=== PATIENT | female | born 1985 | race Caucasian/White ===

== ENCOUNTER 2017-09-08 14:40 | Emergency (ER) | payer SELFPAY ==
--- NOTE | 2017-09-08 16:00 | RAD REPORT ---
EXAM DESCRIPTION: RAD - Chest Single View - 09/08/2017 3:51 pm CLINICAL HISTORY: Chest pain. COMPARISON: 01/06/2017 FINDINGS: Portable technique limits examination quality. The lungs are grossly clear. The heart is normal in size. No displaced fractures. IMPRESSION: No acute intrathoracic process suspected.
[2017-09-08 16:02] LABS: Absolute Monocytes 0.5 K/uL (0.1-1.3); Absolute Neutrophil 6.8 K/uL (1.8-8.0); Basophils % 0.3 % (0-1.3); Eosinophils % 3.7 % (0-4.4); Hematocrit 40.4 % (36.0-45.0); Lymphocytes % 27.7 % (15.3-44.8); MCV 83.1 fL (80-100); MPV 8.3 fL (7.6-11.3); Monocytes % 4.5 % (3.3-12.3); RBC Red Blood Cell Count 4.86 M/uL (3.86-4.86)
[2017-09-08 16:10] LABS: Protime INR 1.02
[2017-09-08 16:15] LABS: Bicarbonate 27 mEq/L (21-31); Glucose Level 92 mg/dL (65-120); Potassium 3.8 mEq/L (3.6-5.0); Sodium Level 137 mEq/L (135-145)
[2017-09-08 16:21] LABS: ALT/SGPT 11 IU/L (10-60); AST/SGOT 16 IU/L (10-42); Albumin 4.3 g/dL (3.2-5.5); Alkaline Phosphatase 70 IU/L (42-121); BUN Blood Urea Nitrogen 11 mg/dL (6-20); Bilirubin Direct 0.1 mg/dL (0-0.2); Bilirubin Total 0.8 mg/dL (0.3-1.2); Magnesium 1.9 mg/dL (1.8-2.5); Protein, Total 7.5 g/dL (6.0-8.3)
--- NOTE | 2017-09-08 16:28 | EDPHYS ---
Physician Documentation [facility] Name: Terri Bustamante Age: 32 yrs Sex: Female : 1985 Arrival Date: 09/08/2017 Time: 14:44 Bed 18 Private MD: ED Physician Mando Bergeron HPI: 09/08 16:21 This 32 yrs old Female presents to ER via Ambulatory with complaints of Chest jr8 Pain, Chest Pressure. 16:21 The patient or guardian reports chest pain that is located primarily in the substernal jr8 area. The pain radiates to the left arm. Associated signs and symptoms: Pertinent positives: left arm and leg shaking . The chest pain is described as sharp, stabbing. Duration: The patient or guardian reports multiple episodes. Modifying factors: The symptoms are alleviated by nothing. the symptoms are aggravated by movement. Severity of pain: At its worst the pain was moderate in the emergency department the pain has improved. The patient has experienced similar episodes in the past, chronically. The patient has not recently seen a physician. Patient stated that she has had these s/s since she was little sometimes it bothers her more. Cannot afford to get into neurologist or management advisor. 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 - Social history:: Smoking status: Patient uses tobacco products, "4 or 5 a day". ROS: 16:21 Eyes: Negative for injury, pain, redness, and discharge, ENT: Negative for injury, jr8 pain, and discharge, Neck: Negative for injury, pain, and swelling, Respiratory: Negative for shortness of breath, cough, wheezing, and pleuritic chest pain, Abdomen/GI: Negative for abdominal pain, nausea, vomiting, diarrhea, and constipation, Back: Negative for injury and pain, MS/Extremity: Negative for injury and deformity, Skin: Negative for injury, rash, and discoloration, Neuro: Negative for headache, weakness, numbness, tingling, and seizure. 16:21 Cardiovascular: Positive for chest pain, Negative for edema, orthopnea, palpitations, paroxysmal nocturnal dyspnea. Exam: 16:21 Eyes: Pupils equal round and reactive to light, extra-ocular motions intact. Lids and jr8 lashes normal. Conjunctiva and sclera are non-icteric and not injected. Cornea within normal limits. Periorbital areas with no swelling, redness, or edema. ENT: Nares patent. No nasal discharge, no septal abnormalities noted. Tympanic membranes are normal and external auditory canals are clear. Oropharynx with no redness, swelling, or masses, exudates, or evidence of obstruction, uvula midline. Mucous membranes moist. Neck: Trachea midline, no thyromegaly or masses palpated, and no cervical lymphadenopathy. Supple, full range of motion without nuchal rigidity, or vertebral point tenderness. No Meningismus. Chest/axilla: Normal chest wall appearance and motion. Nontender with no deformity. No lesions are appreciated. Cardiovascular: Regular rate and rhythm with a normal S1 and S2. No gallops, murmurs, or rubs. Normal PMI, no JVD. No pulse deficits. Respiratory: Lungs have equal breath sounds bilaterally, clear to auscultation and percussion. No rales, rhonchi or wheezes noted. No increased work of breathing, no retractions or nasal flaring. Abdomen/GI: Soft, non-tender, with normal bowel sounds. No distension or tympany. No guarding or rebound. No evidence of tenderness throughout. Back: No spinal tenderness. No costovertebral tenderness. Full range of motion. Skin: Warm, dry with normal turgor. Normal color with no rashes, no lesions, and no evidence of cellulitis. MS/ Extremity: Pulses equal, no cyanosis. Neurovascular intact. Full, normal range of motion. Neuro: Awake and alert, GCS 15, oriented to person, place, time, and situation. Cranial nerves II-XII grossly intact. Motor strength 5/5 in all extremities. Sensory grossly intact. Cerebellar exam normal. Normal gait. Vital Signs: 14:49 BP 134 / 79; Pulse 74; Resp 17; Temp 97.5(O); Pulse Ox 98% on R/A; Weight 90.72 kg (R); tw2 Height 5 ft. 9 in. (175.26 cm); Pain 7/10; 15:30 BP 138 / 74; Pulse 76; Resp 18; Pulse Ox 100% on R/A; hj 16:30 BP 137 / 76; Pulse 77; Resp 18; Pulse Ox 100% on R/A; hj 17:02 BP 135 / 78; Pulse 75; Resp 18; Pulse Ox 100% on R/A; hj 14:49 Body Mass Index 29.53 (90.72 kg, 175.26 cm) tw2 MDM: 15:29 Patient medically screened. 16:24 HEART Score: History: Slightly Suspicious (0), ECG: Normal (0), Age: < or = 45 years jr8 (0), Risk Factors: No Risk Factors Known (0), Troponin: < or = 1 x Normal Limit (0). Data reviewed: vital signs, nurses notes, lab test result(s), EKG, radiologic studies, plain films, and as a result, I will discharge patient. Data interpreted: Pulse oximetry: on room air is 98 %. Interpretation: normal. Counseling: I had a detailed discussion with the patient and/or guardian regarding: the historical points, exam findings, and any diagnostic results supporting the discharge/admit diagnosis, lab results, radiology results, the need for outpatient follow up, a management advisor, a neurologist, to return to the emergency department if symptoms worsen or persist or if there are any questions or concerns that arise at home. Special discussion: Based on the patient's history, exam, and Dx evaluation, there is no indication for emergent intervention or inpatient Tx. It is understood by the patient/guardian that if the Sx's persist or worsen they need to return immediately for re-evaluation. 09/08 15:30 Order name: Basic Metabolic Panel; Complete Time: 16:09/08 15:30 Order name: BNP; Complete Time: 16:28 09/08 15:30 Order name: CBC with Diff; Complete Time: 16:13 09/08 15:30 Order name: LFT's; Complete Time: 16:09/08 15:30 Order name: Magnesium; Complete Time: 16:09/08 15:30 Order name: PT-INR; Complete Time: 16:09/08 15:30 Order name: Troponin (emerg Dept Use Only); Complete Time: 16:23 09/08 15:30 Order name: XRAY Chest (1 view); Complete Time: 16:07 09/08 15:30 Order name: EKG; Complete Time: 15:30 09/08 15:30 Order name: Cardiac monitoring; Complete Time: 15:33 09/08 15:30 Order name: EKG - Nurse/Tech; Complete Time: 15:09/08 15:30 Order name: IV Saline Lock; Complete Time: 15:09/08 17:49 Order name: Urine Dipstick--Ancillary (enter results) ag 09/08 17:49 Order name: Urine --Ancillary (enter results) 09/08 15:30 Order name: Labs collected and sent; Complete Time: 15:09/08 15:30 Order name: O2 Per Protocol; Complete Time: 15:09/08 15:30 Order name: O2 Sat Monitoring; Complete Time: 15:09/08 15:30 Order name: Urine Dipstick-Ancillary (obtain specimen); Complete Time: 15:09/08 15:30 Order name: Urine Test (obtain specimen); Complete Time: 15: Administered Medications: No medications were administered Disposition: 17:15 Co-signature as Attending Physician, Mando Bergeron MD. rn Disposition: 09/08/17 16:27 Discharged to Home. Impression: Chest pain, unspecified. - Condition is Stable. - Discharge Instructions: Nonspecific Chest Pain, Chest Wall Pain, Nonepileptic Seizures, Seizure, Adult. - Medication Reconciliation Form, Thank You Letter, Antibiotic Education, Prescription Opioid Use, Family Work Release form. - Follow up: Conrad Cary MD; When: 2 - 3 days; Reason: Recheck today's complaints, Continuance of care, Re-evaluation by your physician. Follow up: Luis Weaver MD; When: 2 - 3 days; Reason: Recheck today's complaints, Continuance of care, Re-evaluation by your physician. - Problem is new. - Symptoms have improved. Signatures: Dispatcher [employer] EDMS Mando Bergeron MD MD rn Landry Lobo PA PA jr8 Cornelia Dee Henry, RN RN hj Pat Michel RN RN tw2
--- NOTE | 2017-09-08 16:28 | ER ---
Nurse's Notes [facility] Name: Terri Bustamante Age: 32 yrs Sex: Female : 1985 Arrival Date: 09/08/2017 Time: 14:44 Bed 18 Private MD: Diagnosis: Chest pain, unspecified Presentation: 09/08 14:48 Presenting complaint: Patient states: my chest has been hurting me since last night, i tw2 cant catch my breath and my head is throbbing. Transition of care: patient was not received from another setting of care. Onset of symptoms was September 08, 2017. Initial Sepsis Screen: Does the patient meet any 2 criteria? No. Patient's initial sepsis screen is negative. Does the patient have a suspected source of infection? No. Patient's initial sepsis screen is negative. Care prior to arrival: None. 14:48 Method Of Arrival: Ambulatory tw2 14:48 Acuity: IDA 3 tw2 Triage Assessment: 15:11 General: Appears in no apparent distress. uncomfortable, Behavior is calm, cooperative, hj appropriate for age. Pain: Complains of pain in chest. Cardiovascular: Capillary refill < 3 seconds Patient's skin is warm and dry. 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 - Social history:: Smoking status: Patient uses tobacco products, "4 or 5 a day". Screenin:11 Abuse screen: Denies threats or abuse. Denies injuries from another. Nutritional hj screening: No deficits noted. Tuberculosis screening: No symptoms or risk factors identified. Fall Risk None identified. Assessment: 15:11 Pain: Pain began 1 day ago. hj Vital Signs: 14:49 BP 134 / 79; Pulse 74; Resp 17; Temp 97.5(O); Pulse Ox 98% on R/A; Weight 90.72 kg (R); tw2 Height 5 ft. 9 in. (175.26 cm); Pain 7/10; 15:30 BP 138 / 74; Pulse 76; Resp 18; Pulse Ox 100% on R/A; hj 16:30 BP 137 / 76; Pulse 77; Resp 18; Pulse Ox 100% on R/A; hj 17:02 BP 135 / 78; Pulse 75; Resp 18; Pulse Ox 100% on R/A; hj 14:49 Body Mass Index 29.53 (90.72 kg, 175.26 cm) tw2 ED Course: 14:44 Patient arrived in ED. sb2 14:48 Triage completed. tw2 14:48 Arm band placed on. tw2 15:10 Ky Singleton, RN is Primary Nurse. hj 15:11 Patient has correct armband on for positive identification. Placed in gown. Bed in low hj position. Call light in reach. Side rails up X 1. linux architect on. Pulse ox on. NIBP on. 15:12 Patient maintains SpO2 saturation greater than 95% on room air. hj 15:18 Initial lab(s) drawn, by me. Inserted saline lock: 22 gauge in right antecubital area, hj using aseptic technique. Blood collected. 15:29 Landry Lobo PA is PHCP. jr8 15:29 Mando Bergeron MD is Attending Physician. jr8 15:31 EKG done, by manufacturing production technician. reviewed by Mando Bergeron MD. at1 15:50 X-ray completed. Portable x-ray completed in exam room. Patient tolerated procedure bb2 well. 15:51 XRAY Chest (1 view) In Process Unspecified. EDMS 16:26 Conrad Cary MD is Referral Physician. jr8 16:26 Luis Weaver MD is Referral Physician. jr8 17:00 No provider procedures requiring assistance completed. IV discontinued, intact, hj bleeding controlled, No redness/swelling at site. Pressure dressing applied. 17:48 Primary Nurse role handed off by Ky Singleton, RN ag Administered Medications: No medications were administered Outcome: 16:27 Discharge ordered by . jr8 17:01 Discharged to home ambulatory, with family. hj 17:01 Condition: stable 17:01 Discharge instructions given to patient, family, Instructed on discharge instructions, follow up and referral plans. Demonstrated understanding of instructions, follow-up care. 17:01 Patient left the ED. hj 17:50 Patient left the ED. ag Signatures: Dispatcher [employer] EDMS Landry Lobo PA PA jr8 Keena dougherty, insights analyst EKG Tat1 Cornelia Dee Henry, MAYNOR RN hj Pat Michel RN RN tw2 Alea Ortiz bb2 Kelly Oh sb2
[2017-09-08 18:06] LABS: Urine Blood NEGATIVE (NEG); Urine Glucose NEGATIVE (NEG); Urine Specific Gravity 1.015 (1.005-1.030)
[2017-09-08 18:07] LABS: Urine Protein NEGATIVE (NEG)
--- NOTE | 2017-09-09 06:58 | EKG ---
Test Date: 2017-09-08 Test Time: 14:54:15 Industrial Relations Representative: HIMANSHU MEASUREMENT RESULTS: Intervals: Rate: 74 HI: 150 QRSD: 80 QT: 378 QTc: 419 Crowley: P: 44 HI: 150 QRS: 67 T: 57 INTERPRETIVE STATEMENTS: Normal sinus rhythm Normal ECG Compared to ECG 01/06/2017 19:03:00 Sinus arrhythmia no longer present Electronically Signed On 09-09-17 06:57:33 CDT by Conrad Cary
== END 2017-09-08 17:50 | disposition home or self-care (01) ==
LOC: ER 14:40
DX: R07.9 Chest pain, unspecified (principal); R01.1 Cardiac murmur, unspecified; Z72.0 Tobacco use; Z88.8 Allergy status to other drugs, medicaments and biological substances
CPT/HCPCS: 36415; 71045; 80048; 80076; 81003; 81025; 83735; 83880; 84484; 85025; 85610; 93005; 99285

== ENCOUNTER 2018-08-22 12:51 | Emergency (ER) | payer SELFPAY ==
[2018-08-22] MEDS ORDERED: DIPHENHYDRAMINE 50 MG/ML VIAL ONE (13:27)
[2018-08-22] MEDS ORDERED: FAMOTIDINE 20 MG/2 ML VIAL IV ONE (13:27)
[2018-08-22] MEDS ORDERED: LORazepam 2 MG/ML VIAL ONE (13:47)
[2018-08-22 13:53] LABS: Absolute Lymphocytes (CBC) 2.4 K/uL (0.7-4.9); Absolute Monocytes 0.5 K/uL (0.1-1.3); Absolute Neutrophil 3.7 K/uL (1.8-8.0); Basophils % 0.8 % (0-1.3); Eosinophils % 4.2 % (0-4.4); Hematocrit 38.6 % (36.0-45.0); Lymphocytes % 34.4 % (15.3-44.8); MPV 9.1 fL (7.6-11.3); Monocytes % 7.7 % (3.3-12.3); RBC Red Blood Cell Count 4.73 M/uL (3.86-4.86)
[2018-08-22 14:06] LABS: ALT/SGPT 17 U/L (12-78); AST/SGOT 15 U/L (15-37); Albumin 4.5 g/dL (3.4-5.0); Alkaline Phosphatase 60 U/L (45-117); BUN Blood Urea Nitrogen 10 mg/dL (7-18); Bicarbonate 25 mmol/L (21-32); Bilirubin Total 0.8 mg/dL (0.2-1.0); Glucose Level 83 mg/dL (74-106); Potassium 3.3 mmol/L (3.5-5.1); Protein, Total 7.5 g/dL (6.4-8.2); Sodium Level 140 mmol/L (136-145)
--- NOTE | 2018-08-22 15:20 | RAD REPORT ---
EXAM DESCRIPTION: CT - CTFB CLINICAL HISTORY: forehead swelling, non contrast study COMPARISON: HEAD BRAIN W WO CONTRAST dated 11/10/2005 TECHNIQUE: Axial 2 mm thick images of the face were obtained with sagittal and coronal reconstructio n images. All CT scans are performed using dose optimization technique as appropriate and may include automated exposure control or mA/KV adjustment according to patient size. FINDINGS: No acute facial bone fracture is seen.The mandible is intact. Moderate soft tissue swellin g is seen anterior to the frontal bone measuring up to 9 mm in maximum thickness. No underlying bony abnormality or frontal sinus disease. Etiology for this swelling is not definitively identified on th is study. The globes and orbital contents are grossly unremarkable.The paranasal sinuses and mastoids are clear . IMPRESSION: Nonspecific soft tissue swelling anterior to the frontal bone.Otherwise, no acute proces s seen.
[2018-08-22 15:40] LABS: Urine Blood TRACE (NEG); Urine Glucose NEGATIVE (NEG); Urine Protein NEGATIVE (NEG); Urine pH 5.5 (5.0-7.0)
--- NOTE | 2018-08-22 15:47 | ER ---
Nurse's Notes [facility] Name: Terri Bustamante Age: 33 yrs Sex: Female : 1985 Arrival Date: 08/22/2018 Time: 12:52 Bed 23 Private MD: Diagnosis: Facial Edema Presentation: 08/22 12:54 Presenting complaint: Patient states: I noticed some swelling to my forehead last la1 night, it got worse this morning. Transition of care: patient was not received from another setting of care. Onset of symptoms was August 22, 2018. Risk Assessment: Do you want to hurt yourself or someone else? Patient reports no desire to harm self or others. Initial Sepsis Screen: Does the patient meet any 2 criteria? No. Patient's initial sepsis screen is negative. Does the patient have a suspected source of infection? No. Patient's initial sepsis screen is negative. Care prior to arrival: None. 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 - Social history:: Smoking status: unknown. - Ebola Screening: : No symptoms or risks identified at this time. Screenin:00 Abuse screen: Denies threats or abuse. Denies injuries from another. Nutritional ca1 screening: No deficits noted. Tuberculosis screening: No symptoms or risk factors identified. Fall Risk None identified. Assessment: 13:00 General: Appears in no apparent distress. comfortable, Behavior is cooperative, ca1 appropriate for age, anxious. Pain: Complains of pain in forehead Pain radiates to right cheek Pain currently is 4 out of 10 on a pain scale. Quality of pain is described as tingling, Pain began 1 hour ago. Neuro: Level of Consciousness is awake, alert, obeys commands, Oriented to person, place, time, situation. Cardiovascular: Heart tones S1 S2 present Capillary refill < 3 seconds Patient's skin is warm and dry. Respiratory: Airway is patent Respiratory effort is even, unlabored, Respiratory pattern is regular, symmetrical, Breath sounds are clear bilaterally. GI: No deficits noted. No signs and/or symptoms were reported involving the gastrointestinal system. : No deficits noted. No signs and/or symptoms were reported regarding the genitourinary system. EENT: No deficits noted. No signs and/or symptoms were reported regarding the EENT system. Derm: Skin is intact, is healthy with good turgor, Skin is pink, warm \T\ dry. Musculoskeletal: Circulation, motion, and sensation intact. Capillary refill < 3 seconds. 13:47 Reassessment: Patient appears in no apparent distress at this time. Patient and/or ca1 family updated on plan of care and expected duration. Pain level reassessed. Patient is alert, oriented x 3, equal unlabored respirations, skin warm/dry/pink. 14:01 Reassessment: Patient is alert, oriented x 3, equal unlabored respirations, skin ca1 warm/dry/pink. General: Appears in no apparent distress. comfortable, Behavior is calm, cooperative. 14:33 Reassessment: Patient appears in no apparent distress at this time. Patient is alert, ca1 oriented x 3, equal unlabored respirations, skin warm/dry/pink. 14:54 Reassessment: Pt to CT scan. ca1 15:20 Reassessment: Patient appears in no apparent distress at this time. Patient is alert, ca1 oriented x 3, equal unlabored respirations, skin warm/dry/pink. Pt from CT scan. 15:33 Reassessment: TEX Poole at bedside discussing diagnostic test results. ca1 Vital Signs: 12:56 Pulse 70; Resp 16; Temp 98.4(TE); Pulse Ox 100% on R/A; Weight 81.65 kg; Height 5 ft. 9 la1 in. (175.26 cm); Pain 0/10; 12:57 BP 124 / 79; la1 13:47 BP 114 / 93; Pulse 71; Resp 19 S; Pulse Ox 98% on R/A; ca1 14:32 BP 121 / 85; Pulse 73; Resp 18 S; Pulse Ox 99% on R/A; ca1 15:20 BP 115 / 86; Pulse 64; Resp 19 S; Pulse Ox 98% on R/A; ca1 12:56 Body Mass Index 26.58 (81.65 kg, 175.26 cm) la1 ED Course: 12:52 Patient arrived in ED. as 12:55 Triage completed. la1 12:55 Arm band placed on left wrist. la1 13:00 Patient has correct armband on for positive identification. Bed in low position. Call ca1 light in reach. Side rails up X 1. Pulse ox on. NIBP on. Warm blanket given. 13:03 Tiara Acuña, MAYNOR is Primary Nurse. ca1 13:09 Brady Shelby PA is PHCP. petey 13:09 Andrew Faulkner MD is Attending Physician. jmm 13:10 Urine collected: clean catch specimen, clear, faina colored. jp3 13:15 Inserted saline lock: 20 gauge in right antecubital area, using aseptic technique. ca1 Blood collected. 13:35 Door closed. Noise minimized. Lights dimmed. jp3 15:05 CT Facial Bones W/O Con In Process Unspecified. EDMS 15:05 CT completed. Patient tolerated procedure well. Patient moved back from CT. bq 15:56 No provider procedures requiring assistance completed. IV discontinued, intact, ca1 bleeding controlled, No redness/swelling at site. Pressure dressing applied. Administered Medications: 13:16 Drug: Pepcid 20 mg Route: IVP; Site: right antecubital; ca1 14:08 Follow up: Response: No adverse reaction ca1 13:21 Drug: Benadryl 25 mg Route: IVP; Site: right antecubital; ca1 14:09 Follow up: Response: No adverse reaction; Pain is decreased ca1 13:32 Drug: Ativan 0.5 mg Route: IVP; Site: right antecubital; ca1 14:10 Follow up: Response: No adverse reaction; Anxiety unchanged ca1 14:14 Drug: Ativan 0.5 mg Route: IVP; Site: right antecubital; ca1 15:24 Follow up: Response: No adverse reaction; Anxiety decreased ca1 Outcome: 15:46 Discharge ordered by . petey 15:56 Discharged to home ambulatory. ca1 15:56 Condition: stable 15:56 Discharge instructions given to patient, Instructed on discharge instructions, follow up and referral plans. medication usage, Demonstrated understanding of instructions, follow-up care, medications, Prescriptions given X 2. 15:57 Patient left the ED. ca1 Signatures: Dispatcher [employer] EDMS Brady Shelby PA PA Purnima Rios Amelia as Attema, Lee RN RN la1 Abelardo De La Garza jp3 Tiara Acuña RN RN ca1 Corrections: (The following items were deleted from the chart) 13:15 12:54 Acuity: IDA 4 la1 la1 14:22 14:14 Response: No adverse reaction; Pain is unchanged, physician notified ca1 ca1
--- NOTE | 2018-08-22 15:47 | EDPHYS ---
Physician Documentation [facility] Name: Terri Bustamante Age: 33 yrs Sex: Female : 1985 Arrival Date: 08/22/2018 Time: 12:52 Bed 23 Private MD: ED Physician Andrew Faulkner HPI: 08/22 13:14 This 33 yrs old Female presents to ER via Ambulatory with complaints of jmm Facial Swelling. 13:14 The patient presents with localized swelling. Onset: The symptoms/episode jmm began/occurred gradually, this morning. Associated signs and symptoms: Pertinent negatives: fever, nausea, vomiting. Possible causes: The patient has no known obvious cause for the symptoms. This is a 33 year old female with a history of anemia that presents to the ED with complaints of swelling to the right side of her forehead. Patient denies fever. Patient states the area is painful. Denies itch. Patient does apply multiple facial cosmetic products daily. Patient denies vomiting, denies shortness of breath. . 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 - Social history:: Smoking status: unknown. - Ebola Screening: : No symptoms or risks identified at this time. ROS: 13:14 Constitutional: Negative for fever, chills, and weight loss, Cardiovascular: Negative jmm for chest pain, palpitations, and edema, Respiratory: Negative for shortness of breath, cough, wheezing, and pleuritic chest pain. 13:14 Skin: Positive for swelling. 13:14 All other systems are negative. Exam: 13:14 Chest/axilla: Normal chest wall appearance and motion. Cardiovascular: Regular rate jmm and rhythm. No edema appreciated Respiratory: Normal respirations, no respiratory distress appreciated Back: Normal ROM 13:14 Constitutional: The patient appears alert, awake, anxious. 13:14 Head/face: mild right sided forehead edema noted, no erythema is appreciated, mildly tender to palpation. . 13:14 Eyes: Extraocular movements: intact throughout. 13:14 Skin: edema noted to the right side of the forehead. 13:14 Neuro: Orientation: is normal, Mentation: is normal, Memory: is normal. 13:14 Psych: Behavior/mood is cooperative, anxious. Vital Signs: 12:56 Pulse 70; Resp 16; Temp 98.4(TE); Pulse Ox 100% on R/A; Weight 81.65 kg; Height 5 ft. 9 la1 in. (175.26 cm); Pain 0/10; 12:57 BP 124 / 79; la1 13:47 BP 114 / 93; Pulse 71; Resp 19 S; Pulse Ox 98% on R/A; ca1 14:32 BP 121 / 85; Pulse 73; Resp 18 S; Pulse Ox 99% on R/A; ca1 15:20 BP 115 / 86; Pulse 64; Resp 19 S; Pulse Ox 98% on R/A; ca1 12:56 Body Mass Index 26.58 (81.65 kg, 175.26 cm) la1 MDM: 13:14 Patient medically screened. [facility] 15:43 Data reviewed: vital signs, nurses notes. Counseling: I had a detailed discussion with petey the patient and/or guardian regarding: the historical points, exam findings, and any diagnostic results supporting the discharge/admit diagnosis, lab results, radiology results, the need for outpatient follow up, to return to the emergency department if symptoms worsen or persist or if there are any questions or concerns that arise at home. 15:43 ED course: Patient's labs are unremarkable, ct shows nonspecific edema. I discussed petey with the patient the possibility of localized allergic reaction due to facial care products. Patient was advised to discontinue use. Do to the patient pain patient was prescribed oral antibiotics and given infection return precautions. Patient understood and agrees with the plan of care. . 08/22 13:14 Order name: CBC with Diff; Complete Time: 14:01 [facility] 08/22 13:14 Order name: CMP; Complete Time: 14:08 [facility] 08/22 14:30 Order name: CT Facial Bones W/O Con; Complete Time: 15:25 [facility] 08/22 15:32 Order name: Urine Dipstick--Ancillary (enter results); Complete Time: 15:42 08/22 15:32 Order name: Urine --Ancillary (enter results); Complete Time: 15:42 08/22 13:14 Order name: Saline Lock; Complete Time: 13:32 [facility] 08/22 13:14 Order name: Urine Dipstick-Ancillary (obtain specimen); Complete Time: 13:32 [facility] 08/22 14:51 Order name: Urine Test (obtain specimen); Complete Time: 14:54 [facility] Administered Medications: 13:16 Drug: Pepcid 20 mg Route: IVP; Site: right antecubital; ca1 14:08 Follow up: Response: No adverse reaction ca1 13:21 Drug: Benadryl 25 mg Route: IVP; Site: right antecubital; ca1 14:09 Follow up: Response: No adverse reaction; Pain is decreased ca1 13:32 Drug: Ativan 0.5 mg Route: IVP; Site: right antecubital; ca1 14:10 Follow up: Response: No adverse reaction; Anxiety unchanged ca1 14:14 Drug: Ativan 0.5 mg Route: IVP; Site: right antecubital; ca1 15:24 Follow up: Response: No adverse reaction; Anxiety decreased ca1 Disposition: 08/23 08:11 Co-signature as Attending Physician, Andrew Faulkner MD I agree with the assessment and racheal plan of care. Disposition: 08/22/18 15:46 Discharged to Home. Impression: Facial Edema. - Condition is Stable. - Prescriptions for Hydroxyzine HCl 25 mg Oral Tablet - take 1 tablet by ORAL route every 6 hours As needed; 30 tablet. Bactrim DS 800- 160 mg Oral Tablet - take 1 tablet by ORAL route every 12 hours for 10 days; 20 tablet. - Medication Reconciliation Form, Thank You Letter, Antibiotic Education, Prescription Opioid Use form. - Follow up: Private Physician; When: 2 - 3 days; Reason: Recheck today's complaints, Continuance of care, Re-evaluation by your physician. - Notes: Please take off all facial products. Take benadryl every 4 to 6 hours as needed. You may take hydroxyzine at night. Please return to the ED if you develop increased swelling, shortness of breath, or fever. Signatures: Dispatcher [employer] Andrew Huggins MD MD cha Mickail, Joel, PA PA jmm Attema, Lee RN RN la1 Tiara Acuña RN RN ca1 Corrections: (The following items were deleted from the chart) 08/22 15:57 15:46 08/22/2018 15:46 Discharged to Home. Impression: Facial Edema. Condition is ca1 Stable. Forms are Medication Reconciliation Form, Thank You Letter, Antibiotic Education, Prescription Opioid Use. Follow up: Private Physician; When: 2 - 3 days; Reason: Recheck today's complaints, Continuance of care, Re-evaluation by your physician. petey
== END 2018-08-22 15:57 | disposition home or self-care (01) ==
LOC: ER 12:51
DX: R60.0 Localized edema (principal); D64.9 Anemia, unspecified; R73.03 Prediabetes
CPT/HCPCS: 36415; 70486; 76377; 80053; 81003; 81025; 85025; 96374; 96375; 99284

== ENCOUNTER 2018-08-23 11:36 | Emergency (ER) | payer OTHER, SELFPAY ==
[2018-08-23] MEDS ORDERED: LORazepam 2 MG/ML VIAL ONE (12:25)
[2018-08-23] MEDS ORDERED: METHYLPREDNISOLONE 125 MG INJ ONE (12:25)
[2018-08-23] MEDS ORDERED: FENTANYL CITR 100 MCG/2 ML ONE (12:25)
[2018-08-23] MEDS ORDERED: ONDANSETRON 4 MG/2 ML VIAL ONE (12:26)
[2018-08-23 12:32] LABS: Absolute Lymphocytes (CBC) 1.7 K/uL (0.7-4.9); Absolute Monocytes 0.4 K/uL (0.1-1.3); Absolute Neutrophil 2.5 K/uL (1.8-8.0); Eosinophils % 3.1 % (0-4.4); Hematocrit 41.2 % (36.0-45.0); Lymphocytes % 35.1 % (15.3-44.8); MPV 9.1 fL (7.6-11.3); Monocytes % 7.7 % (3.3-12.3); RBC Red Blood Cell Count 4.95 M/uL (3.86-4.86)
[2018-08-23] MEDS ORDERED: POTASSIUM CL SA 10 MEQ TAB PO ONE (13:08)
--- OUTSIDE RECORDS SUMMARY | 2018-08-23 13:28 | XMS REPORT ---
:1985 [facility] [address] [place] [address] [place] [id number] Care Team Providers Name Role Phone Unavailable Unavailable Unavailable Problems This patient has no known problems. Allergies, Adverse Reactions, Alerts This patient has no known allergies or adverse reactions. Medications This patient has no known medications.
--- NOTE | 2018-08-23 13:31 | EDPHYS ---
Physician Documentation [facility] Name: Terri Bustamante Age: 33 yrs Sex: Female : 1985 Arrival Date: 08/23/2018 Time: 11:39 Bed 18 Private MD: ED Physician Mando Bergeron HPI: 08/23 13:27 This 33 yrs old Female presents to ER via Ambulatory with complaints of jr8 Facial Swelling. 13:27 Patient seen yesterday for nonspecific forehead swelling. Given Bactrim and jr8 hydroxizine. Came back today for continued symptoms. Denies trauma to face. Recently had new hair dye treatment . Severity of symptoms: At their worst the symptoms were moderate in the emergency department the symptoms are unchanged. The patient has not experienced similar symptoms in the past. The patient has been recently seen by a physician:. 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 - Social history:: Smoking status: Patient uses tobacco products, smokes one-half pack cigarettes per day. - Ebola Screening: : Patient denies exposure to infectious person Patient denies travel to an Ebola-affected area in the 21 days before illness onset. ROS: 13:27 Eyes: Negative for injury, pain, redness, and discharge, ENT: Negative for injury, jr8 pain, and discharge, Neck: Negative for injury, pain, and swelling, Cardiovascular: Negative for chest pain, palpitations, and edema, Respiratory: Negative for shortness of breath, cough, wheezing, and pleuritic chest pain, Abdomen/GI: Negative for abdominal pain, nausea, vomiting, diarrhea, and constipation, Back: Negative for injury and pain, MS/Extremity: Negative for injury and deformity, Neuro: Negative for headache, weakness, numbness, tingling, and seizure. 13:27 Skin: Positive for swelling, of the forehead. Exam: 13:27 Eyes: Pupils equal round and reactive to light, extra-ocular motions intact. Lids and jr8 lashes normal. Conjunctiva and sclera are non-icteric and not injected. Cornea within normal limits. Periorbital areas with no swelling, redness, or edema. ENT: Nares patent. No nasal discharge, no septal abnormalities noted. Tympanic membranes are normal and external auditory canals are clear. Oropharynx with no redness, swelling, or masses, exudates, or evidence of obstruction, uvula midline. Mucous membranes moist. Neck: Trachea midline, no thyromegaly or masses palpated, and no cervical lymphadenopathy. Supple, full range of motion without nuchal rigidity, or vertebral point tenderness. No Meningismus. Cardiovascular: Regular rate and rhythm with a normal S1 and S2. No gallops, murmurs, or rubs. Normal PMI, no JVD. No pulse deficits. Respiratory: Lungs have equal breath sounds bilaterally, clear to auscultation and percussion. No rales, rhonchi or wheezes noted. No increased work of breathing, no retractions or nasal flaring. Abdomen/GI: Soft, non-tender, with normal bowel sounds. No distension or tympany. No guarding or rebound. No evidence of tenderness throughout. Back: No spinal tenderness. No costovertebral tenderness. Full range of motion. Skin: Warm, dry with normal turgor. Normal color with no rashes, no lesions, and no evidence of cellulitis. MS/ Extremity: Pulses equal, no cyanosis. Neurovascular intact. Full, normal range of motion. Neuro: Awake and alert, GCS 15, oriented to person, place, time, and situation. Cranial nerves II-XII grossly intact. Motor strength 5/5 in all extremities. Sensory grossly intact. Cerebellar exam normal. Normal gait. 13:27 Head/face: Noted is swelling, that is mild, of the forehead, tenderness, that is mild, of the forehead, No trauma or erythema noted . Vital Signs: 11:47 BP 114 / 80; Pulse 81; Resp 16; Temp 98.4(O); Pulse Ox 100% on R/A; Weight 81.65 kg; ss Height 5 ft. 9 in. (175.26 cm); Pain 6/10; 12:34 BP 112 / 75; Pulse 80; Resp 18; Pulse Ox 100% on R/A; hj 13:46 BP 115 / 72; Pulse 78; Resp 18; Pulse Ox 100% on R/A; hj 11:47 Body Mass Index 26.58 (81.65 kg, 175.26 cm) ss MDM: 12:00 Patient medically screened. jr8 13:27 Data reviewed: vital signs, nurses notes, lab test result(s). Data interpreted: Pulse jr8 oximetry: on room air is 100 %. Interpretation: normal. Counseling: I had a detailed discussion with the patient and/or guardian regarding: the historical points, exam findings, and any diagnostic results supporting the discharge/admit diagnosis, lab results, the need for outpatient follow up, a family practitioner, to return to the emergency department if symptoms worsen or persist or if there are any questions or concerns that arise at home. ED course: Reviewed and compared labs from today to yesterday without concerning change. CT was reviewed from yesterday. Non specific swelling without infections or blood component noted. Recommend steroid therapy at this time. Explained to her that this may take a few days to go down. To f/u with PCP in next day or two. If worse to come back . 13:43 ED course: After discussing discharge plan with patient. Charge nurse went to discharge jr8 patient and became very irate and verbally abusive to her. I went to talk to patient to calm her down. Patient did not understand why we were not doing anything. I calmly explained to her that we treated her to the best of our ability with medicine. Explained to her again that we reevaluated her labs and compared them to yesterday without any acute change. Reviewed images from yesterday that were non specific. Explained to her that steroid course is what is advised for now. Patient started screaming and hollering. Code daily was initiated and I told her police would be called if she did not calm down. Patient then said she just wants to be discharged and left. . 08/23 12:09 Order name: CBC with Diff; Complete Time: 12:42 jr8 08/23 12:09 Order name: Basic Metabolic Panel; Complete Time: 12:54 jr8 08/23 12:09 Order name: IV; Complete Time: 12:23 jr8 Administered Medications: 12:12 Drug: fentaNYL (PF) 50 mcg Route: IVP; Site: right antecubital; 12:54 Follow up: Response: No adverse reaction; Pain is decreased hj 12:12 Drug: Zofran 4 mg Route: IVP; Site: right antecubital; hj 12:54 Follow up: Response: No adverse reaction hj 12:12 Drug: Ativan 0.5 mg Route: IVP; Site: right antecubital; hj 12:53 Follow up: Response: No adverse reaction; Anxiety decreased hj 12:12 Drug: SOLU-Medrol 125 mg Route: IVP; Site: right antecubital; hj 12:53 Follow up: Response: No adverse reaction hj 12:54 Drug: Potassium Chloride 40 mEq Route: PO; hj 13:46 Follow up: Response: No adverse reaction hj Disposition: 08/24 07:06 Co-signature as Attending Physician, Mando Bergeron MD. rn Disposition: 08/23/18 13:31 Discharged to Home. Impression: Facial Swelling . - Condition is Stable. - Prescriptions for Prednisone 20 mg Oral Tablet - take 3 tablet by ORAL route once daily for 5 days; 15 tablet. - Medication Reconciliation Form, Thank You Letter, Antibiotic Education, Prescription Opioid Use form. - Follow up: Private Physician; When: 48 Hours; Reason: Recheck today's complaints, Continuance of care, Re-evaluation by your physician. - Problem is new. - Symptoms have improved. Signatures: Dispatcher [employer] EDMS Mando Bergeron MD MD rn Smirch, Shelby, RN RN ss Roszak, Josh, PA PA jr8 Ky Singleton RN RN Corrections: (The following items were deleted from the chart) 08/23 13:46 13:31 08/23/2018 13:31 Discharged to Home. Impression: Facial Swelling . Condition is hj Stable. Forms are Medication Reconciliation Form, Thank You Letter, Antibiotic Education, Prescription Opioid Use. Follow up: Private Physician; When: 48 Hours; Reason: Recheck today's complaints, Continuance of care, Re-evaluation by your physician. Problem is new. Symptoms have improved. jr8 13:50 13:27 ED course: Reviewed and compared labs from today to yesterday without concerning jr8 change. CT was reviewed from yesterday. Non specific swelling without infections or blood component noted. Recommend steroid therapy at this time. To f/u with PCP in next day or two. If worse to come back . jr8
--- NOTE | 2018-08-23 13:31 | ER ---
Nurse's Notes [facility] Name: Terri Bustamante Age: 33 yrs Sex: Female : 1985 Arrival Date: 08/23/2018 Time: 11:39 Bed 18 Private MD: Diagnosis: Facial Swelling Presentation: 08/23 11:46 Presenting complaint: Patient states: Facial swelling that began 3 days ago. Pt reports ss that she was seen in ER last night and was diagnosed with allergic reaction and hematoma and was given Bactrim and a antihistamine. Pt is concerned because the swelling is worse and she feels more pressure than before. Transition of care: patient was not received from another setting of care. Onset of symptoms was August 20, 2018. Risk Assessment: Do you want to hurt yourself or someone else? Patient reports no desire to harm self or others. Initial Sepsis Screen: Does the patient meet any 2 criteria? No. Patient's initial sepsis screen is negative. Does the patient have a suspected source of infection? No. Patient's initial sepsis screen is negative. Care prior to arrival: None. 11:46 Method Of Arrival: Ambulatory ss 11:46 Acuity: IDA 3 ss Triage Assessment: 11:46 General: Appears in no apparent distress. uncomfortable, Behavior is cooperative, hj appropriate for age, anxious. Pain: Complains of pain in forehead. 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 - Social history:: Smoking status: Patient uses tobacco products, smokes one-half pack cigarettes per day. - Ebola Screening: : Patient denies exposure to infectious person Patient denies travel to an Ebola-affected area in the 21 days before illness onset. Screenin:46 Abuse screen: Denies threats or abuse. Denies injuries from another. Nutritional hj screening: No deficits noted. Tuberculosis screening: No symptoms or risk factors identified. Fall Risk None identified. Vital Signs: 11:47 BP 114 / 80; Pulse 81; Resp 16; Temp 98.4(O); Pulse Ox 100% on R/A; Weight 81.65 kg; ss Height 5 ft. 9 in. (175.26 cm); Pain 6/10; 12:34 BP 112 / 75; Pulse 80; Resp 18; Pulse Ox 100% on R/A; hj 13:46 BP 115 / 72; Pulse 78; Resp 18; Pulse Ox 100% on R/A; hj 11:47 Body Mass Index 26.58 (81.65 kg, 175.26 cm) ED Course: 11:39 Patient arrived in ED. mr 11:47 Triage completed. ss 11:47 Arm band placed on right wrist. 11:49 Ky Singleton, MAYNOR is Primary Nurse. hj 11:54 Landry Lobo PA is PHCP. [facility] 11:54 Mando Bergeron MD is Attending Physician. [facility] 12:22 Initial lab(s) drawn, by ia, sent to lab. Inserted saline lock: 22 gauge in right 5 antecubital area, using aseptic technique. Blood collected. 12:23 Patient has correct armband on for positive identification. Bed in low position. Call [facility] light in reach. Side rails up X 1. Warm blanket given. Pillow given. Pulse ox on. NIBP on. 12:23 Basic Metabolic Panel Sent. [facility] 12:23 CBC with Diff Sent. [facility] 13:44 No provider procedures requiring assistance completed. IV discontinued, intact, hj bleeding controlled, No redness/swelling at site. Pressure dressing applied. Administered Medications: 12:12 Drug: fentaNYL (PF) 50 mcg Route: IVP; Site: right antecubital; hj 12:54 Follow up: Response: No adverse reaction; Pain is decreased hj 12:12 Drug: Zofran 4 mg Route: IVP; Site: right antecubital; hj 12:54 Follow up: Response: No adverse reaction hj 12:12 Drug: Ativan 0.5 mg Route: IVP; Site: right antecubital; hj 12:53 Follow up: Response: No adverse reaction; Anxiety decreased hj 12:12 Drug: SOLU-Medrol 125 mg Route: IVP; Site: right antecubital; hj 12:53 Follow up: Response: No adverse reaction hj 12:54 Drug: Potassium Chloride 40 mEq Route: PO; 13:46 Follow up: Response: No adverse reaction Outcome: 13:31 Discharge ordered by . jesse 13:45 Discharged to home ambulatory. 13:45 Condition: stable 13:45 Discharge instructions given to patient, Instructed on discharge instructions, follow up and referral plans. medication usage, Demonstrated understanding of instructions, follow-up care, medications, Prescriptions given X 13:46 Patient left the ED. Signatures: Dayanna Barksdale Shelby, RN RN ss Roszak, Josh, PA PA jr8 Joaquin, Henry, RN RN hj Martinez, Maria [facility]
== END 2018-08-23 13:46 | disposition home or self-care (01) ==
LOC: ER 11:36
DX: R22.0 Localized swelling, mass and lump, head (principal); F17.210 Nicotine dependence, cigarettes, uncomplicated; Z88.5 Allergy status to narcotic agent; Z91.048 Other nonmedicinal substance allergy status
CPT/HCPCS: 36415; 80048; 82962; 85025; 96374; 96375; 99284; J2405; J2930; J3010

== ENCOUNTER 2018-12-17 10:06 | Emergency (ER) | payer OTHER, SELFPAY ==
--- OUTSIDE RECORDS SUMMARY | 2018-12-17 10:11 | XMS REPORT ---
:1985 [facility] Address [address] [place] [address] [place] [id number] Care Team Providers Name Role Phone Unavailable Unavailable Unavailable Problems This patient has no known problems. Allergies, Adverse Reactions, Alerts This patient has no known allergies or adverse reactions. Medications This patient has no known medications.
[2018-12-17] MEDS ORDERED: FAMOTIDINE 20 MG/2 ML VIAL IV ONE (10:28)
[2018-12-17 11:06] LABS: Absolute Lymphocytes (CBC) 1.2 K/uL (0.7-4.9); Basophils % 0.2 % (0-1.3); Hematocrit 33.1 % (36.0-45.0); Lymphocytes % 12.8 % (15.3-44.8); RBC Red Blood Cell Count 3.96 M/uL (3.86-4.86)
[2018-12-17 11:07] LABS: ALT/SGPT 21 U/L (12-78); AST/SGOT 15 U/L (15-37); Alkaline Phosphatase 46 U/L (45-117); BUN Blood Urea Nitrogen 7 mg/dL (7-18); Bicarbonate 23 mmol/L (21-32); Bilirubin Direct 0.1 mg/dL (0-0.2); Bilirubin Total 0.3 mg/dL (0.2-1.0); Glucose Level 92 mg/dL (74-106); Lipase 41 U/L (73-393); Potassium 3.8 mmol/L (3.5-5.1); Protein, Total 6.5 g/dL (6.4-8.2); Sodium Level 143 mmol/L (136-145)
--- NOTE | 2018-12-17 11:52 | EDPHYS ---
Physician Documentation [facility] Name: Terri Bustamante Age: 33 yrs Sex: Female : 1985 Arrival Date: 12/17/2018 Time: 10:07 Bed 7 Private MD: ED Physician Kade Kearns HPI: 12/17 10:25 This 33 yrs old Female presents to ER via EMS with complaints of Hangover. cp 10:25 The patient presents to the emergency department with nausea, that is mild, vomiting, cp that is continuous, described as bilious, diarrhea, that is intermittent. 10:25 Onset: The symptoms/episode began/occurred suddenly, this morning. Possible causes: use cp of alcohol last night. Associated signs and symptoms: Pertinent positives: abdominal pain, Pertinent negatives: constipation, fever, GI bleeding. Severity of symptoms: in the emergency department the symptoms have improved moderately. 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 - Social history:: Smoking status: Patient/guardian denies using tobacco. - Ebola Screening: : Patient negative for fever greater than or equal to 101.5 degrees Fahrenheit, and additional compatible Ebola Virus Disease symptoms Patient denies exposure to infectious person Patient denies travel to an Ebola-affected area in the 21 days before illness onset No symptoms or risks identified at this time. ROS: 10:30 Constitutional: Negative for body aches, chills, fever. cp 10:30 Eyes: Negative for injury, pain, redness, and discharge. cp 10:30 ENT: Negative for drainage from ear(s), ear pain, sore throat, difficulty swallowing, difficulty handling secretions. 10:30 Cardiovascular: Negative for chest pain, palpitations. 10:30 Respiratory: Negative for cough, shortness of breath, wheezing. 10:30 Abdomen/GI: Positive for abdominal pain, nausea, vomiting, and diarrhea, Negative for constipation, hematemesis, black/tarry stool, rectal bleeding. 10:30 : Negative for urinary symptoms. 10:30 Skin: Negative for cellulitis, rash. 10:30 Neuro: Negative for altered mental status, headache, weakness. 10:30 All other systems are negative. Exam: 10:45 Head/Face: Normocephalic, atraumatic. cp 10:45 Constitutional: The patient appears in no acute distress, alert, awake, non-toxic, well developed, well nourished. 10:45 Eyes: Periorbital structures: appear normal, Conjunctiva: normal, no exudate, no injection, Sclera: no appreciated abnormality, Lids and lashes: appear normal, bilaterally. 10:45 ENT: External ear(s): are unremarkable, Ear canal(s): are normal, clear, TM's: bulging, is not appreciated, bilaterally, dullness, bilaterally, erythema, is not appreciated, bilaterally, Nose: is normal, Mouth: Lips: moist, Oral mucosa: pink and intact, moist, Posterior pharynx: is normal, airway is patent, no erythema, no exudate. 10:45 Chest/axilla: Inspection: normal, Palpation: is normal, no crepitus, no tenderness. 10:45 Cardiovascular: Rate: normal, Rhythm: regular. 10:45 Respiratory: the patient does not display signs of respiratory distress, Respirations: cp normal, no use of accessory muscles, no retractions, no splinting, no tachypnea, labored breathing, is not present, Breath sounds: are clear throughout, no decreased breath sounds, no stridor, no wheezing. 10:45 Abdomen/GI: Inspection: Bowel sounds: active, all quadrants, Palpation: soft, in all quadrants, mild abdominal tenderness, in the left upper quadrant and left lower quadrant, voluntary guarding, is not appreciated, involuntary guarding, is not appreciated. 10:45 Back: pain, is absent, ROM is normal. 10:45 Skin: no rash present. Vital Signs: 10:10 BP 115 / 74; Pulse 66; Resp 20; Temp 98.4; Pulse Ox 100% on R/A; Weight 65.77 kg; aj Height 5 ft. 7 in. (170.18 cm); 11:56 BP 115 / 74; Pulse 68; Resp 19; Pulse Ox 99% on R/A; aj 10:10 Body Mass Index 22.71 (65.77 kg, 170.18 cm) aj MDM: 10:13 Patient medically screened. cp 10:40 Differential diagnosis: gastritis, cholecystitis, pancreatitis, appendicitis, viral cp gastroenteritis, gastroenteritis, dehydration. 11:50 Data reviewed: vital signs, nurses notes, lab test result(s). cp 11:50 Counseling: I had a detailed discussion with the patient and/or guardian regarding: the cp historical points, exam findings, and any diagnostic results supporting the discharge/admit diagnosis, lab results, to return to the emergency department if symptoms worsen or persist or if there are any questions or concerns that arise at home. Response to treatment: the patient's symptoms have markedly improved after treatment, VSS. Nausea improved and vomiting resolved. Will discharge to home for continued monitoring. 12/17 10:18 Order name: Basic Metabolic Panel; Complete Time: 11:24 cp 12/17 10:18 Order name: CBC with Diff; Complete Time: 11:24 cp 12/17 10:18 Order name: Creatinine for Radiology; Complete Time: 11:24 cp 12/17 10:18 Order name: Hepatic Function; Complete Time: 11:24 cp 12/17 10:18 Order name: Lipase; Complete Time: 11:24 cp 12/17 10:18 Order name: IV Saline Lock; Complete Time: 10:38 cp 12/17 10:18 Order name: Labs collected and sent; Complete Time: 10:38 cp 12/17 11:24 Order name: PO challenge; Complete Time: 11:48 cp Administered Medications: 10:27 CANCELLED (Duplicate Order): Zofran 4 mg IVP once; over 2 minutes aj 10:27 CANCELLED (Duplicate Order): NS 0.9% 1000 ml IV at 1 bolus Per protocol; 1000 mL bolus aj 10:37 Drug: Pepcid 20 mg Route: IVP; Site: left antecubital; aj 11:57 Follow up: Response: Nausea is decreased aj Disposition: 12/17/18 11:51 Discharged to Home. Impression: Nausea, Diarrhea, unspecified. - Condition is Stable. - Discharge Instructions: Diarrhea, Adult, Nausea, Adult. - Prescriptions for Zofran 4 mg Oral Tablet - take 1 tablet by ORAL route every 12 hours As needed; 20 tablet. - Medication Reconciliation Form, Thank You Letter, Antibiotic Education, Prescription Opioid Use form. - Follow up: Private Physician; When: 1 - 2 days; Reason: Recheck today's complaints. - Problem is new. - Symptoms have improved. Addendum: 12/20/2018 09:13 Co-signature as Attending Physician, Kade Kearns MD I agree with the assessment and k dr plan of care. Signatures: Dispatcher [employer] EDKeena Kunz RN RN Kade Dacosta MD MD [facility] Andrew Breen PA PA cp Corrections: (The following items were deleted from the chart) 12/17 10:27 10:18 Zofran 4 mg IVP once; over 2 minutes ordered. cp aj 10: 10:18 NS 0.9% 1000 ml IV at 1 bolus Per protocol; 1000 mL bolus ordered. cp aj 11:52 11:51 12/17/2018 11:51 Discharged to Home. Impression: Nausea. Condition is Stable. cp Forms are Medication Reconciliation Form, Thank You Letter, Antibiotic Education, Prescription Opioid Use. Follow up: Private Physician; When: 1 - 2 days; Reason: Recheck today's complaints. Problem is new. Symptoms have improved. cp 11:58 11:52 12/17/2018 11:51 Discharged to Home. Impression: Nausea; Diarrhea, unspecified. aj Condition is Stable. Discharge Instructions: Nausea, Adult, Diarrhea, Adult. Prescriptions for Zofran 4 mg Oral Tablet - take 1 tablet by ORAL route every 12 hours As needed; 20 tablet. and Forms are Medication Reconciliation Form, Thank You Letter, Antibiotic Education, Prescription Opioid Use. Follow up: Private Physician; When: 1 - 2 days; Reason: Recheck today's complaints. Problem is new. Symptoms have improved. cp
--- NOTE | 2018-12-17 11:52 | ER ---
Nurse's Notes [facility] Name: Terri Bustamante Age: 33 yrs Sex: Female : 1985 Arrival Date: 12/17/2018 Time: 10:07 Bed 7 Private MD: Diagnosis: Nausea;Diarrhea, unspecified Presentation: 12/17 10:07 Presenting complaint: EMS states: Patient called 911 after waking up this AM and aj vomiting after drinking too much alcohol last night. EMS gave Zofran 4 MG IVP and NS 500 ml. Transition of care: patient was not received from another setting of care. Onset of symptoms was December 17, 2018. Risk Assessment: Do you want to hurt yourself or someone else? Patient reports no desire to harm self or others. Initial Sepsis Screen: Does the patient meet any 2 criteria? No. Patient's initial sepsis screen is negative. Does the patient have a suspected source of infection? No. Patient's initial sepsis screen is negative. Care prior to arrival: Medication(s) given: zofran 4 mg, IV initiated. 18 GA, in the left antecubital area. 10:07 Method Of Arrival: EMS: [facility] aj 10:07 Acuity: IDA 4 aj Triage Assessment: 10:10 General: Appears in no apparent distress. comfortable, Behavior is calm, cooperative, aj appropriate for age. Pain: Denies pain. Neuro: Level of Consciousness is awake, alert, obeys commands, Oriented to person, place, time, situation, Appropriate for age. Respiratory: Airway is patent Respiratory effort is even, unlabored, Respiratory pattern is regular, symmetrical. GI: Reports nausea, vomiting. Derm: Skin is intact, is healthy with good turgor, Skin is pink, warm \T\ dry. normal. 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 - Social history:: Smoking status: Patient/guardian denies using tobacco. - Ebola Screening: : Patient negative for fever greater than or equal to 101.5 degrees Fahrenheit, and additional compatible Ebola Virus Disease symptoms Patient denies exposure to infectious person Patient denies travel to an Ebola-affected area in the 21 days before illness onset No symptoms or risks identified at this time. Screenin:39 Abuse screen: Denies threats or abuse. Denies injuries from another. Nutritional aj screening: No deficits noted. Tuberculosis screening: No symptoms or risk factors identified. Fall Risk None identified. Assessment: 10:38 Reassessment: Patient appears in no apparent distress at this time. No changes from aj previously documented assessment. Patient and/or family updated on plan of care and expected duration. Pain level reassessed. Patient is alert, oriented x 3, equal unlabored respirations, skin warm/dry/pink. Patient is in NAD with visitor at bedside. Can be heard laughing loudly at nurses station. 11:56 Reassessment: Patient appears in no apparent distress at this time. No changes from aj previously documented assessment. Patient and/or family updated on plan of care and expected duration. Pain level reassessed. Patient is alert, oriented x 3, equal unlabored respirations, skin warm/dry/pink. Vital Signs: 10:10 BP 115 / 74; Pulse 66; Resp 20; Temp 98.4; Pulse Ox 100% on R/A; Weight 65.77 kg; aj Height 5 ft. 7 in. (170.18 cm); 11:56 BP 115 / 74; Pulse 68; Resp 19; Pulse Ox 99% on R/A; aj 10:10 Body Mass Index 22.71 (65.77 kg, 170.18 cm) aj ED Course: 10:07 Patient arrived in ED. aj 10:08 Andrew Breen PA is PHCP. cp 10:08 Kade Kearns MD is Attending Physician. cp 10:09 Triage completed. aj 10:10 Arm band placed on right wrist. Patient placed in an exam room. aj 10:12 Keena Kraus, MAYNOR is Primary Nurse. aj 10:38 Maintain EMS IV. Gauge \T\ site: 18 to left ac. aj 10:39 Patient has correct armband on for positive identification. aj 11:56 No provider procedures requiring assistance completed. IV discontinued, intact, aj bleeding controlled, No redness/swelling at site. Pressure dressing applied. Administered Medications: 10:27 CANCELLED (Duplicate Order): Zofran 4 mg IVP once; over 2 minutes aj 10:27 CANCELLED (Duplicate Order): NS 0.9% 1000 ml IV at 1 bolus Per protocol; 1000 mL bolus aj 10:37 Drug: Pepcid 20 mg Route: IVP; Site: left antecubital; aj 11:57 Follow up: Response: Nausea is decreased aj Outcome: 11:51 Discharge ordered by MD. cp 11:56 Discharged to home ambulatory. aj 11:56 Condition: good 11:56 Discharge instructions given to patient, Instructed on discharge instructions, follow up and referral plans. medication usage, Demonstrated understanding of instructions, follow-up care, medications, Prescriptions given X 1. 11:58 Patient left the ED. aj Signatures: Keena Kraus RN RN Andrew Russell PA PA cp Corrections: (The following items were deleted from the chart) 10:10 10:07 Care prior to arrival: None. aj aj
== END 2018-12-17 11:58 | disposition home or self-care (01) ==
LOC: ER 10:06
DX: R11.0 Nausea (principal); R19.7 Diarrhea, unspecified; Z88.8 Allergy status to other drugs, medicaments and biological substances; D64.9 Anemia, unspecified
CPT/HCPCS: 36415; 80048; 80076; 83690; 85025; 96374; 99283

== ENCOUNTER 2019-05-18 00:57 | Emergency (ER) | payer SELFPAY ==
--- OUTSIDE RECORDS SUMMARY | 2019-05-18 00:59 | XMS REPORT | Summary of Care ---
:1985 Author Organization [facility] Address [address] [place] [id number] Care Team Providers Name Role Phone Christina Ferrera Medicaid Hmo Pcp, Patient Does Not Have A Primary Care Provider Reason for Visit Reason Comments Assessment BREAST LUMP Encounter Details Date Type Department Care Team Description 01/03/2019 Telephone [facility] RMP- Tanisha Crespo Assessment ( BREAST [place] C, WHCNP LUMP) [address] [facility] [address], [place] [address] [place], [place] [id number] Allergies Active Allergy Reactions Severity Noted Date Comments Hydrocortisone Swelling 04/05/2013 Iodine Hives 11/11/2014 documented as of this encounter (statuses as of 01/04/2019) Medications Medication Sig Dispensed Refills Start Date End Date Status ibuprofen (MOTRIN) 600 Take 1 Tab by 20 Tab 0 11/11/2014 Active mg tablet mouth 2 (two) times daily with meals. Etonogestrel 68 mg by Subdermal 0 Active (NEXPLANON) 68 mg route once now. implant SERTraline (ZOLOFT) 50 Take 50 mg by 0 Active mg tablet mouth daily. ORTHO [id number] Take 1 Tab by 1 Package 3 12/26/2014 Active (ORTHO TRI-CYCLEN, mouth daily. 28,) 0.18/0.215/0.25 mg-35 mcg (28) tabletIndications: Breakthrough bleeding on Nexplanon naproxen sodium Take 1 tablet by 30 tablet 0 08/13/2018 Active (ANAPROX DS) 550 mg mouth 2 (two) tabletIndications: times daily with Acute foot pain, right meals. 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 documented as of this encounter (statuses as of 01/04/2019) Resolved Problems Problem Noted Date Resolved Date Fibrocystic disease of breast 12/27/2014 12/28/2014 Irregular menstrual cycle 12/26/2014 12/29/2014 History of depression 12/26/2014 12/29/2014 documented as of this encounter (statuses as of 01/04/2019) Immunizations Name Administration Dates Next Due Tdap 01/16/2013 documented as of this encounter Social History Tobacco Use Types Packs/Day Years Used Date Former Smoker Quit: 03/09/2013 Smokeless Tobacco: Never Used Alcohol Use Drinks/Week oz/Week Comments Yes 0 Standard drinks or equivalent 0.0 occasionally Sex Assigned at Date Recorded Not on file Job Start Date Occupation Industry Not on file Not on file Not on file Travel History Travel Start Travel End No recent travel history available. documented as of this encounter Last Filed Vital Signs Not on filedocumented in this encounter Plan of Treatment Date Type Specialty Care Team Description 01/04[facility]2019 [facility] Jerica Foley, SKIP HOIST ENGINEER [address] [place] [address] [phone] Health Maintenance Due Date Last Done Comments VARICELLA VACCINES (1 of 2 - 07/19/2000 13+ 2-dose series) PAP SMEAR 04/05/2016 04/05/2013, 12/28/2007, 12/02/2006 INFLUENZA VACCINE (#1) 2019 DTaP,Tdap,and Td Vaccines (2 01/16/2023 01/16/2013 - Td) PNEUMOCOCCAL 0-64 YEARS Aged Out No longer eligible based COMBINED SERIES on patient's age to complete this topic documented as of this encounter Results Not on filedocumented in this encounter Insurance Payer Benefit Plan / Subscriber ID Effective Dates Phone Address Type Group AETNA AETNA O [id number] [facility] [place] [facility] [place] [facility] xxxxxxxxx 2014-Present Medicaid HEALTH PLAN - HEALTH MANAGED MEDICAID documented as of this encounter
--- OUTSIDE RECORDS SUMMARY | 2019-05-18 00:59 | XMS REPORT ---
:1985 [facility] Address [address] [place] [address] [place] [address] Care Team Providers Name Role Phone Unavailable Unavailable Unavailable Problems This patient has no known problems. Allergies, Adverse Reactions, Alerts This patient has no known allergies or adverse reactions. Medications This patient has no known medications.
[2019-05-18] MEDS ORDERED: NA CHLORIDE 0.9% 1,000 ML ONE (01:42)
[2019-05-18] MEDS ORDERED: KETOROLAC 30 MG/ML INJ ONE (01:42)
[2019-05-18] MEDS ORDERED: IPRATROPIUM BROM 0.5MG/2.5ML ONE (01:42)
[2019-05-18] MEDS ORDERED: ALBUTEROL 2.5 MG/3 ML NEB SOL ONE (01:42)
[2019-05-18 01:55] LABS: Absolute Lymphocytes (CBC) 3.7 K/uL (0.7-4.9); Basophils % 0.8 % (0-1.3); Hematocrit 39.6 % (36.0-45.0); Lymphocytes % 40.2 % (15.3-44.8); MPV 8.5 fL (7.6-11.3); RBC Red Blood Cell Count 4.78 M/uL (3.86-4.86)
[2019-05-18 02:05] LABS: BUN Blood Urea Nitrogen 11 mg/dL (7-18); Bicarbonate 25 mmol/L (21-32); Glucose Level 103 mg/dL (74-106); Potassium 3.2 mmol/L (3.5-5.1); Sodium Level 139 mmol/L (136-145)
--- NOTE | 2019-05-18 03:02 | ER ---
Nurse's Notes [facility] Name: Terri Bustamante Age: 33 yrs Sex: Female : 1985 Arrival Date: 05/18/2019 Time: 01:00 Bed 8 Private MD: Diagnosis: Bronchitis, not specified as acute or chronic;Headache;Upper respiratory congestion Presentation: 05/18 01:13 Presenting complaint: Patient states: Productive cough, general body aches, diarrhea x lp1 2 weeks; Patient states unable to sleep and not getting better; Denies fever at home; complaint of coughing up green mucus. Transition of care: patient was not received from another setting of care. Onset of symptoms was May 18, 2019. Risk Assessment: Do you want to hurt yourself or someone else? Patient reports no desire to harm self or others. Initial Sepsis Screen: Does the patient meet any 2 criteria? No. Patient's initial sepsis screen is negative. Does the patient have a suspected source of infection? No. Patient's initial sepsis screen is negative. Care prior to arrival: None. 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 - Social history:: Smoking status: Patient uses tobacco products, smokes one-half pack cigarettes per day. - Ebola Screening: : No symptoms or risks identified at this time. Screenin:17 Abuse screen: Denies threats or abuse. Denies injuries from another. Nutritional lp1 screening: No deficits noted. Tuberculosis screening: No symptoms or risk factors identified. Fall Risk None identified. Assessment: 01:16 General: Appears in no apparent distress. Behavior is appropriate for age. Pain: lp1 Complains of pain in generalized body Pain currently is 3 out of 10 on a pain scale. Quality of pain is described as aching. Neuro: No deficits noted. Cardiovascular: No deficits noted. Respiratory: Reports shortness of breath cough that is productive, pain with cough Airway is patent Respiratory effort is even, unlabored, Breath sounds are clear bilaterally. GI: Reports diarrhea. : No signs and/or symptoms were reported regarding the genitourinary system. EENT: Reports nasal congestion. Derm: Skin is pink, warm \T\ dry. Musculoskeletal: No deficits noted. 03:39 Reassessment: Patient appears in no apparent distress at this time. Patient and/or jd3 family updated on plan of care and expected duration. Pain level reassessed. Patient is alert, oriented x 3, equal unlabored respirations, skin warm/dry/pink. pt reported understanding of discharge instructions. even and steady gait upon discharge. no report or signs of pain/distress. Patient states feeling better. Vital Signs: 01:15 BP 116 / 76; Pulse 71; Resp 18; Temp 98.2(O); Pulse Ox 100% on R/A; Weight 67.13 kg lp1 (R); Height 5 ft. 9 in. (175.26 cm); Pain 3/10; 03:41 BP 112 / 77; Pulse 69; Resp 19 S; Pulse Ox 96% on R/A; jd3 01:15 Body Mass Index 21.86 (67.13 kg, 175.26 cm) lp1 ED Course: 01:00 Patient arrived in ED. cl3 01:05 Pascale Pop, MAYNOR is Primary Nurse. lp1 01:07 Kade Kearns MD is Attending Physician. kdr 01:15 Triage completed. lp1 01:15 Arm band placed on. lp1 01:17 Patient has correct armband on for positive identification. lp1 01:24 Flu Sent. ds4 01:59 CXR XRAY In Process Unspecified. EDMS 03:42 No provider procedures requiring assistance completed. IV discontinued, intact, jd3 bleeding controlled, No redness/swelling at site. Pressure dressing applied. Administered Medications: 01:52 Drug: NS 0.9% 1000 ml Route: IV; Rate: 1 bolus; Site: right antecubital; ea 02:50 Follow up: Response: No adverse reaction; IV Status: Completed infusion; IV Intake: jd3 1000ml 01:52 Drug: Albuterol - atroVENT (3:1) (2.5 mg - 0.5 mg) 3 ml Route: Nebulizer; ea 03:38 Follow up: Response: No adverse reaction jd3 01:53 Drug: TORadol - Ketorolac 15 mg Route: IVP; Site: right antecubital; ea 02:50 Follow up: Response: No adverse reaction jd3 03:37 Drug: Potassium Chloride 40 mEq Route: PO; jd3 03:37 Follow up: Response: Medication administered at discharge. jd3 Intake: 02:50 IV: 1000ml; Total: 1000ml. jd3 Outcome: 03:01 Discharge ordered by . kdr 03:43 Discharged to home ambulatory. jd3 03:43 Condition: stable 03:43 Discharge instructions given to patient, Instructed on discharge instructions, follow up and referral plans. medication usage, Demonstrated understanding of instructions, follow-up care, medications, Prescriptions given X 3. 03:43 Patient left the ED. jd3 Signatures: Dispatcher [employer] EDMS Kade Kearns MD MD kdr Pena, Laura RN RN lp1 Thomas Mejia ds4 Jojo Fernandes RN RN ea Davies, Jonathon, RN RN Román Green cl3
--- NOTE | 2019-05-18 03:02 | EDPHYS ---
Physician Documentation [facility] Name: Terri Bustamante Age: 33 yrs Sex: Female : 1985 Arrival Date: 05/18/2019 Time: 01:00 Bed 8 Private MD: ED Physician Kade Kearns HPI: 05/18 03:59 This 33 yrs old Female presents to ER via Ambulatory with complaints of Flu kdr Symptoms. 03:59 The patient or guardian reports cough, flu symptoms, arthralgias, low-grade fever, kdr myalgias, no appetite, headache. Onset: The symptoms/episode began/occurred gradually, 2 week(s) ago. Severity of symptoms: At their worst the symptoms were mild, moderate, just prior to arrival, in the emergency department the symptoms are unchanged. Modifying factors: The symptoms are alleviated by nothing, the symptoms are aggravated by coughing. Associated signs and symptoms: Pertinent positives: fever, nausea, sore throat. The patient has not experienced similar symptoms in the past. The patient has not recently seen a physician. 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 - Social history:: Smoking status: Patient uses tobacco products, smokes one-half pack cigarettes per day. - Ebola Screening: : No symptoms or risks identified at this time. ROS: 03:59 Constitutional: Negative for weight loss - she has had subjective fever and occassional kdr chills Eyes: Negative for injury, pain, redness, and discharge, Neck: Negative for injury, pain, and swelling, Cardiovascular: Negative for chest pain, palpitations, and edema, Abdomen/GI: Negative for abdominal pain, nausea, vomiting, diarrhea, and constipation, Back: Negative for injury and pain, : Negative for injury, bleeding, discharge, and swelling, MS/Extremity: Negative for injury and deformity, Skin: Negative for injury, rash, and discoloration, Neuro: Negative for headache, weakness, numbness, tingling, and seizure activity. Psych: Negative for depression, anxiety, suicide ideation, homicidal ideation, and hallucinations, Allergy/Immunology: Negative for hives, rash, and allergies, Endocrine: Negative for neck swelling, polydipsia, polyuria, polyphagia, and marked weight changes, Hematologic/Lymphatic: Negative for swollen nodes, abnormal bleeding, and unusual bruising. 03:59 Respiratory: Positive for cough, with green sputum. Exam: 04:55 Constitutional: This is a well developed, well nourished patient who is awake, alert, kdr and in no acute distress. Head/Face: Normocephalic, atraumatic. Eyes: Pupils equal round and reactive to light, extra-ocular motions intact. Lids and lashes normal. Conjunctiva and sclera are non-icteric and not injected. Cornea within normal limits. Periorbital areas with no swelling, redness, or edema. Neck: Trachea midline, no thyromegaly or masses palpated, and no cervical lymphadenopathy. Supple, full range of motion without nuchal rigidity, or vertebral point tenderness. No Meningismus. Chest/axilla: Normal chest wall appearance and motion. Nontender with no deformity. No lesions are appreciated. Cardiovascular: Regular rate and rhythm with a normal S1 and S2. No gallops, murmurs, or rubs. Normal PMI, no JVD. No pulse deficits. Abdomen/GI: Soft, non-tender, with normal bowel sounds. No distension or tympany. No guarding or rebound. No evidence of tenderness throughout. Back: No spinal tenderness. No costovertebral tenderness. Full range of motion. Skin: Warm, dry with normal turgor. Normal color with no rashes, no lesions, and no evidence of cellulitis. MS/ Extremity: Pulses equal, no cyanosis. Neurovascular intact. Full, normal range of motion. Neuro: Awake and alert, GCS 15, oriented to person, place, time, and situation. Cranial nerves II-XII grossly intact. Motor strength 5/5 in all extremities. Sensory grossly intact. Cerebellar exam normal. Normal gait. Psych: Awake, alert, with orientation to person, place and time. Behavior, mood, and affect are within normal limits. Vital Signs: 01:15 BP 116 / 76; Pulse 71; Resp 18; Temp 98.2(O); Pulse Ox 100% on R/A; Weight 67.13 kg lp1 (R); Height 5 ft. 9 in. (175.26 cm); Pain 3/10; 03:41 BP 112 / 77; Pulse 69; Resp 19 S; Pulse Ox 96% on R/A; jd3 01:15 Body Mass Index 21.86 (67.13 kg, 175.26 cm) lp1 MDM: 03:01 Patient medically screened. kdr 04:55 Data reviewed: vital signs, nurses notes, lab test result(s), radiologic studies. kdr Counseling: I had a detailed discussion with the patient and/or guardian regarding: the historical points, exam findings, and any diagnostic results supporting the discharge/admit diagnosis, lab results, radiology results, the need for outpatient follow up. ED course: The patient was happy with the care provided and the plan for discharge and follow-up. 05/18 01:11 Order name: Flu; Complete Time: 02:20 kdr 05/18 01:34 Order name: CBC with Diff; Complete Time: 02:20 kdr 05/18 01:34 Order name: CXR XRAY kdr 05/18 01:34 Order name: Chem 7; Complete Time: 02:20 kdr Administered Medications: 01:52 Drug: NS 0.9% 1000 ml Route: IV; Rate: 1 bolus; Site: right antecubital; ea 02:50 Follow up: Response: No adverse reaction; IV Status: Completed infusion; IV Intake: jd3 1000ml 01:52 Drug: Albuterol - atroVENT (3:1) (2.5 mg - 0.5 mg) 3 ml Route: Nebulizer; ea 03:38 Follow up: Response: No adverse reaction jd3 01:53 Drug: TORadol - Ketorolac 15 mg Route: IVP; Site: right antecubital; ea 02:50 Follow up: Response: No adverse reaction jd3 03:37 Drug: Potassium Chloride 40 mEq Route: PO; jd3 03:37 Follow up: Response: Medication administered at discharge. jd3 Disposition: 05/18/19 03:01 Discharged to Home. Impression: Bronchitis, not specified as acute or chronic, Headache, Upper respiratory congestion. - Condition is Stable. - Discharge Instructions: General Headache Without Cause, Acute Bronchitis, [id number]. - Prescriptions for Tramadol 50 mg Oral Tablet - take 1 tablet by ORAL route every 8 hours as needed; 12 tablet. Zithromax Z- Deonte 250 mg Oral Tablet - take 1 tablet by ORAL route as directed for 5 days Day 1 - take two (2) tablets one time. Day 2, 3, 4 , 5 take one (1) tablet once daily.; 6 tablet. Albuterol Sulfate 90 mcg/actuation - inhale 1-2 puff by INHALATION route every 4-6 hours; 1 Inhaler. Tessalon Perles 100 mg Oral Capsule - take 1 capsule by ORAL route every 8 hours As needed; 15 capsule. - Medication Reconciliation Form, Thank You Letter, Antibiotic Education, Prescription Opioid Use form. - Follow up: Private Physician; When: 2 - 3 days; Reason: If symptoms return, Further diagnostic work-up, Recheck today's complaints, Continuance of care, Re-evaluation by your physician. - Problem is new. - Symptoms have improved. Signatures: Dispatcher [employer] [facility] Kade Kearns MD MD kdr Pena, Laura RN RN lp1 Jojo Fernandes RN RN ea Harman White RN RN jd3 Corrections: (The following items were deleted from the chart) 03:43 03:01 05/18/2019 03:01 Discharged to Home. Impression: Bronchitis, not specified as jd3 acute or chronic; Headache; Upper respiratory congestion. Condition is Stable. Forms are Medication Reconciliation Form, Thank You Letter, Antibiotic Education, Prescription Opioid Use. Follow up: Private Physician; When: 2 - 3 days; Reason: If symptoms return, Further diagnostic work-up, Recheck today's complaints, Continuance of care, Re-evaluation by your physician. Problem is new. Symptoms have improved. kdr
[2019-05-18] MEDS ORDERED: POTASSIUM CL SA 10 MEQ TAB PO ONE (03:30)
[2019-05-18 03:57] VITALS: TEMP 98.2
[2019-05-18 03:58] VITALS: BP 112/77; O2SAT 96
--- NOTE | 2019-05-18 08:23 | RAD REPORT ---
EXAM DESCRIPTION: RAD - Chest Single View - 05/18/2019 2:02 am CLINICAL HISTORY: Cough, flu-like symptoms COMPARISON: August 2017 TECHNIQUE: AP portable chest image was obtained 0159 hours . FINDINGS: Lungs are clear. Heart and vasculature are normal. No measurable pleural effusion and no p neumothorax. No acute bony abnormality seen. No acute aortic findings suspected. IMPRESSION: No acute cardiopulmonary process. No significant change from comparison.
== END 2019-05-18 03:43 | disposition home or self-care (01) ==
LOC: ER 00:57
DX: J40 Bronchitis, not specified as acute or chronic (principal); R51 Headache; R09.89 Other specified symptoms and signs involving the circulatory and respiratory systems; Z88.8 Allergy status to other drugs, medicaments and biological substances; Z91.048 Other nonmedicinal substance allergy status
CPT/HCPCS: 36415; 71045; 80048; 85025; 87804; 94640; 96361; 96374; 99284; J7030

== ENCOUNTER 2019-11-17 13:36 | Emergency (ER) | payer BC, SELFPAY ==
[2019-11-17 16:11] LABS: Urine Blood NEGATIVE (NEG); Urine Glucose NEGATIVE (NEG); Urine Protein NEGATIVE (NEG); Urine pH 5.5 (5.0-7.0)
[2019-11-17 16:12] LABS: Absolute Lymphocytes (CBC) 2.7 K/uL (0.7-4.9); Basophils % 0.6 % (0-1.3); Hematocrit 40.8 % (36.0-45.0); Lymphocytes % 39.4 % (15.3-44.8); MPV 8.5 fL (7.6-11.3); RBC Red Blood Cell Count 4.86 M/uL (3.86-4.86)
[2019-11-17 16:14] LABS: BUN Blood Urea Nitrogen 5 mg/dL (7-18); Bicarbonate 24 mmol/L (21-32); Glucose Level 88 mg/dL (74-106); Potassium 3.7 mmol/L (3.5-5.1); Sodium Level 140 mmol/L (136-145)
[2019-11-17] MEDS ORDERED: AZITHROMYCIN 250 MG TAB ONE (16:31)
--- NOTE | 2019-11-17 16:39 | RAD REPORT ---
EXAM DESCRIPTION: CT - Soft Tissue Neck Wo Contr CLINICAL HISTORY: right neck swelling Neck pain or swelling. COMPARISON: C Spine Wo Con dated 09/27/[address] scans are performed using dose optimization technique as appropriate and may includ e automated exposure control or mA/KV adjustment according to patient size. FINDINGS: Soft tissue mass in the right submandibular region measuring 14 mm and 13 mm noted likely representing enlarged lymph nodes. Several enlarged lymph nodes are present along the jugular chain o n the right measuring up to 10-11 mm. Enlarged lymph nodes are also present in the left neck, left submandibular region measuring up to 10- 12 mm and left jugulodigastric chain. Overall, assessment is somewhat limited by lack contrast enhanc ement in the adjacent vessels. Trace fluid is seen in the left mastoid air cell. 12 mm mucous retention cyst versus polyp is seen in the left maxillary antrum. IMPRESSION: Enlarged lymph nodes are seen throughout the neck, greatest in the right submandibular r egion. This probably represents cervical lymphadenitis. After appropriate therapy, recommend follow-u p CT imaging to ensure resolution.
--- NOTE | 2019-11-17 17:09 | ER ---
Nurse's Notes [facility] Name: Terri Bustamante Age: 34 yrs Sex: Female : 1985 Arrival Date: 11/17/2019 Time: 13:41 Bed 13 Private MD: None, None Diagnosis: Cervical lateral lymphadenopathy - right;Cat-scratch disease Presentation: 11/16 14:06 Chief complaint: Patient states: Swollen lymph nodes x 5 days, denies fever, cough, jl7 congestion, denies N/V/D. Reports night sweats and lightheadedness for a couple of days. Coronavirus screen: Proceed with normal triage. Patient denies a cough. Patient denies shortness of breath or difficulty breathing. Patient denies measured and/or subjective temperature greater than 100.4F prior to today's visit. Patient denies travel on a cruise ship or to a country the [facility] currently lists as an affected area. Patient denies contact with known and/or suspected case of COVID-19. Ebola Screen: No symptoms or risks identified at this time. Initial Sepsis Screen: Does the patient meet any 2 criteria? No. Patient's initial sepsis screen is negative. Does the patient have a suspected source of infection? No. Patient's initial sepsis screen is negative. Risk Assessment: Do you want to hurt yourself or someone else? Patient reports no desire to harm self or others. Onset of symptoms is unknown. Care prior to arrival: None. 14:06 Method Of Arrival: Ambulatory jl7 14:06 Acuity: IDA 3 jl7 Triage Assessment: 14:12 General: Appears in no apparent distress. uncomfortable, Behavior is calm, cooperative, jl7 appropriate for age. Pain: Complains of pain in neck Pain currently is 7 out of 10 on a pain scale. 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 - Social history:: Smoking status: Patient reports the use of cigarette tobacco products, smokes one-half pack cigarettes per day. Screenin:45 Abuse screen: Denies threats or abuse. Nutritional screening: No deficits noted. em Tuberculosis screening: No symptoms or risk factors identified. Fall Risk None identified. Assessment: 14:40 General: Appears in no apparent distress. uncomfortable, Behavior is calm, cooperative, em appropriate for age, Denies fever. Pain: Complains of pain in neck Pain currently is 7 out of 10 on a pain scale. Pain began 2-3 days ago. Neuro: Level of Consciousness is awake, alert, obeys commands, Oriented to person, place, time, situation, Appropriate for age. Cardiovascular: Capillary refill < 3 seconds Patient's skin is warm and dry. Respiratory: Airway is patent Respiratory effort is even, unlabored, Respiratory pattern is regular, symmetrical. GI: Abdomen is flat. : Denies burning with urination. EENT: Throat is clear is pink Reports pain in right jaw. Derm: Skin is intact, is healthy with good turgor, Skin is pink, warm \T\ dry. Musculoskeletal: Swelling present in neck. 15:40 Reassessment: Dr. Kearns at bedside. em 15:50 Reassessment: Patient appears in no apparent distress at this time. Patient and/or em family updated on plan of care and expected duration. Pain level reassessed. Patient is alert, oriented x 3, equal unlabored respirations, skin warm/dry/pink. 16:40 Reassessment: Patient appears in no apparent distress at this time. Patient and/or em family updated on plan of care and expected duration. Pain level reassessed. Patient is alert, oriented x 3, equal unlabored respirations, skin warm/dry/pink. Vital Signs: 14:06 BP 138 / 87; Pulse 89; Resp 19; Temp 98.3; Pulse Ox 99% on R/A; Weight 64.41 kg; Height jl7 5 ft. 9 in. (175.26 cm); Pain 7/10; 14:06 Body Mass Index 20.97 (64.41 kg, 175.26 cm) jl7 ED Course: 13:41 Patient arrived in ED. mr 13:42 None, None is Private Physician. mr 14:11 Triage completed. jl7 14:12 Arm band placed on right wrist. jl7 14:18 Wei Blackwood, RN is Primary Nurse. em 14:45 Patient has correct armband on for positive identification. Bed in low position. Call em light in reach. Side rails up X2. Pulse ox on. NIBP on. 15:36 Kade Kearns MD is Attending Physician. kdr 15:50 Initial lab(s) drawn, by me, sent to lab. Inserted saline lock: 20 gauge in right em antecubital area, using aseptic technique. Blood collected. 16:26 Soft Tissue Neck Wo Contr In Process Unspecified. EDMS 17:19 No provider procedures requiring assistance completed. IV discontinued, intact, em bleeding controlled, No redness/swelling at site. Pressure dressing applied. Administered Medications: 16:40 Drug: Zithromax 500 mg Route: PO; em Outcome: 17:08 Discharge ordered by . kdr 17:19 Discharged to home ambulatory. em 17:19 Condition: good 17:19 Discharge instructions given to patient, Instructed on discharge instructions, follow up and referral plans. medication usage, Demonstrated understanding of instructions, follow-up care, medications, Prescriptions given X 1. 17:20 Patient left the ED. sv Signatures: Dispatcher [employer] Ryann Golden, MAYNOR MCGUIRE Kade Kearns MD MD kdr Rivera, Mary mr Wei Blackwood, RN RN Marquita Gaston RN RN jl7
--- NOTE | 2019-11-17 17:09 | EDPHYS ---
Physician Documentation [facility] Name: Terri Bustamante Age: 34 yrs Sex: Female : 1985 Arrival Date: 11/17/2019 Time: 13:41 Bed 13 Private MD: None, None ED Physician Kade Kearns HPI: 11/16 19:37 This 34 yrs old Female presents to ER via Ambulatory with complaints of Neck kdr Swollen,facial pain. 19:37 The patient or guardian complains of pain, that is acute, swelling, tenderness. The kdr symptoms are located on the right posterior aspect of neck, right lateral aspect of neck and right anterior aspect of neck. Onset: The symptoms/episode began/occurred gradually, 5 day(s) ago. Context: The problem was sustained at home, The neck injury/problem resulted from Possible cat scratch to right upper rextremity. Associated signs and symptoms: The patient has no apparent associated signs or symptoms. The pain does not radiate. Modifying factors: The symptoms are alleviated by nothing. the symptoms are aggravated by movement, pressure. Severity of symptoms: At their worst the symptoms were mild, moderate, just prior to arrival, in the emergency department the symptoms are unchanged. The patient has not experienced similar symptoms in the past. The patient has not recently seen a physician. 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 - Social history:: Smoking status: Patient reports the use of cigarette tobacco products, smokes one-half pack cigarettes per day. ROS: 19:37 Constitutional: Negative for fever, chills, and weight loss, Eyes: Negative for injury, kdr pain, redness, and discharge, Cardiovascular: Negative for chest pain, palpitations, and edema, Respiratory: Negative for shortness of breath, cough, wheezing, and pleuritic chest pain, Abdomen/GI: Negative for abdominal pain, nausea, vomiting, diarrhea, and constipation. 19:37 Neck: Positive for mass, pain with movement, pain at rest, swelling, swollen nodes, tenderness, of the right posterior aspect of neck and right side of neck. Exam: 19:37 Constitutional: This is a well developed, well nourished patient who is awake, alert, kdr and in no acute distress. Head/Face: Normocephalic, atraumatic. Eyes: Pupils equal round and reactive to light, extra-ocular motions intact. Lids and lashes normal. Conjunctiva and sclera are non-icteric and not injected. Cornea within normal limits. Periorbital areas with no swelling, redness, or edema. Chest/axilla: Normal chest wall appearance and motion. Nontender with no deformity. No lesions are appreciated. Cardiovascular: Regular rate and rhythm with a normal S1 and S2. No gallops, murmurs, or rubs. Normal PMI, no JVD. No pulse deficits. 19:37 Neck: External neck: mass, that is moderate-sized, of the right posterior aspect of neck, right lateral aspect of neck and right anterior aspect of neck, swelling, that is moderate, tenderness. Vital Signs: 14:06 BP 138 / 87; Pulse 89; Resp 19; Temp 98.3; Pulse Ox 99% on R/A; Weight 64.41 kg; Height jl7 5 ft. 9 in. (175.26 cm); Pain 7/10; 14:06 Body Mass Index 20.97 (64.41 kg, 175.26 cm) jl7 MDM: 17:08 Patient medically screened. kdr 19:37 Data reviewed: vital signs, nurses notes, lab test result(s), radiologic studies. kdr Counseling: I had a detailed discussion with the patient and/or guardian regarding: the historical points, exam findings, and any diagnostic results supporting the discharge/admit diagnosis, lab results, radiology results, the need for outpatient follow up. 11/16 15:36 Order name: CBC with Diff; Complete Time: 17:06 kdr 11/16 15:36 Order name: Chem 7; Complete Time: 17:06 kdr 11/16 15:54 Order name: Urine Dipstick--Ancillary (enter results); Complete Time: 17:06 mt 11/16 15:54 Order name: Urine --Ancillary (enter results); Complete Time: 17:06 me 11/16 16:06 Order name: Soft Tissue Neck Wo Contr; Complete Time: 17:06 EDMT Administered Medications: 16:40 Drug: Zithromax 500 mg Route: PO; em Disposition: 11/17/19 17:08 Discharged to Home. Impression: Cervical lateral lymphadenopathy - right, Cat-scratch disease. - Condition is Stable. - Discharge Instructions: Cat-Scratch Disease, Antibiotic Medicine, [id number]. - Prescriptions for Tramadol 50 mg Oral Tablet - take 1 tablet by ORAL route every 8 hours as needed; 12 tablet. Zithromax Z- Deonte 250 mg Oral Tablet - take 1 tablet by ORAL route once daily for 4 days; 4 tablet. - Medication Reconciliation Form, Thank You Letter, Antibiotic Education, Prescription Opioid Use form. - Follow up: Private Physician; When: 2 - 3 days; Reason: If symptoms return, Further diagnostic work-up, Recheck today's complaints, Continuance of care, Re-evaluation by your physician. - Problem is new. - Symptoms have improved. Signatures: Dispatcher [employer] [facility] Ryann Dior RN RN Kade Kearns MD MD kdr Munoz, Edgar, RN RN Marquita Wolf RN RN jl7 Corrections: (The following items were deleted from the chart) 16:06 15:50 Soft Tissue Neck W/Contr+CT.RAD.BRZ ordered. [facility] 17:20 17:08 11/17/2019 17:08 Discharged to Home. Impression: Cervical lateral lymphadenopathy sv - right; Cat-scratch disease. Condition is Stable. Forms are Medication Reconciliation Form, Thank You Letter, Antibiotic Education, Prescription Opioid Use. Follow up: Private Physician; When: 2 - 3 days; Reason: If symptoms return, Further diagnostic work-up, Recheck today's complaints, Continuance of care, Re-evaluation by your physician. Problem is new. Symptoms have improved. kdr
[2019-11-17 17:36] VITALS: BP 138/87; TEMP 98.3; O2SAT 99
--- OUTSIDE RECORDS SUMMARY | 2019-11-17 18:16 | XMS REPORT | Continuity of Care Document ---
:1985 Author Organization [facility] t Address [address] [place] [address] Care Team Providers Name Role Phone Meghan Hernandez Attending Clinician Problems This patient has no known problems. Allergies, Adverse Reactions, Alerts This patient has no known allergies or adverse reactions. Medications This patient has no known medications. Procedures This patient has no known procedures. Encounters Start End Encounter Admission Attending Care Care Encounter Source Date/Time Date/Time Type Type Clinicians Facility Department ID 2019-01-03 2019-01-03 Telephone Zak [facility] [id number] 00:00:00 00:00:00 Tanisha Christianson ACADEMIC AFFAIRS COORDINATOR [id number] [facility] [id number] MATERNAL [phone] & CHILD [address] [place] [address] Results This patient has no known results.
== END 2019-11-17 17:20 | disposition home or self-care (01) ==
LOC: ER 13:36
DX: A28.1 Cat-scratch disease (principal); R59.0 Localized enlarged lymph nodes; Z91.09 Other allergy status, other than to drugs and biological substances; F41.8 Other specified anxiety disorders; F17.210 Nicotine dependence, cigarettes, uncomplicated
CPT/HCPCS: 36415; 70490; 80048; 81003; 81025; 85025; 99284

== ENCOUNTER 2020-03-25 18:31 | Emergency (ER) | payer BC ==
--- OUTSIDE RECORDS SUMMARY | 2020-03-25 18:32 | XMS REPORT | Continuity of Care Document ---
:1985 Author Organization [facility] t Address [address] [place] [address] Care Team Providers Name Role Phone Meghan [...] Facility Department ID 2019-01-03 2019-01-03 Telephone Zak [facility] [id number] 00:00:00 00:00:00 Tanisha Christianson LEAD EMBEDDED SOFTWARE ENGINEER [id number] [facility] [id number] MATERNAL [phone] & CHILD [address] [place] [address] Results This patient has no known results.
--- NOTE | 2020-03-25 20:14 | ER ---
Nurse's Notes [facility] Name: Terri Bustamante Age: 34 yrs Sex: Female : 1985 Arrival Date: 03/25/2020 Time: 18:32 Bed Waiting Private MD: Diagnosis: Presentation: 03/25 18:51 Chief complaint: Left sided neck pain that radiates to left arm and leg x 2 weeks. hb Coronavirus screen: At this time, the client does not indicate any symptoms associated with coronavirus-19. Ebola Screen: No symptoms or risks identified at this time. Initial Sepsis Screen: Does the patient meet any 2 criteria? No. Patient's initial sepsis screen is negative. Does the patient have a suspected source of infection? No. Patient's initial sepsis screen is negative. Risk Assessment: Do you want to hurt yourself or someone else? Patient reports no desire to harm self or others. Onset of symptoms was February 2020. 18:51 Method Of Arrival: Ambulatory hb 18:51 Acuity: IDA 4 hb Historical: - Allergies: 18:54 Hydrocortisone; hb 18:54 Iodine; hb - Home Meds: 18:54 Abilify Oral [Active]; Trazodone Oral [Active]; Effexor XR Oral [Active]; hb - PMHx: 18:54 Anemia; Anxiety; Bipolar disorder; boderline diabetic; borderline personality; hb Depression; heart murmer; uterine inversion after ; - PSHx: 18:54 None; hb - Immunization history:: Adult Immunizations up to date. - Social history:: Smoking status: Patient reports the use of cigarette tobacco products, smokes one-half pack cigarettes per day. Vital Signs: 18:51 BP 127 / 96; Pulse 72; Resp 16; Temp 97.5; Pulse Ox 100% on R/A; Pain 8/10; hb ED Course: 18:32 Patient arrived in ED. ds1 18:53 Triage completed. hb 18:54 Arm band placed on. hb 19:36 Patient's name was called from ER lobby. No response. lp1 Administered Medications: No medications were administered Outcome: 20:14 Patient left the ED. 1 Signatures: Avelina Harman ds1 Pascale Pop RN RN lp1 Danni Elizalde RN RN hb Jono, Lynsay, RN RN ll1
[2020-03-25 20:20] VITALS: BP 127/96; TEMP 97.5; O2SAT 100
== END 2020-03-25 20:14 | disposition left against medical advice (07) ==
LOC: ER 18:31
DX: Z53.21 Procedure and treatment not carried out due to patient leaving prior to being seen by health care provider (principal)
CPT/HCPCS: 99281

== ENCOUNTER 2022-06-19 19:32 | Emergency (ER) | payer BC, OTHER ==
--- OUTSIDE RECORDS SUMMARY | 2022-06-19 19:47 | XMS REPORT | Continuity of Care Document ---
:1985 Author Organization [facility] t Address [address] [place] [address] Care Team Providers Name Role Phone Selwyn JACOB, [facility] Primary Care Physician [phone] Tanisha Hernandez Attending Clinician [phone] Payers Payer Name Policy Type Policy Number Effective Date Expiration Date S ource Problems Condition Condition Condition Status Onset Resolution Last Treating Co mments Source Name Details Category Date Date Treatment Clinician Date Depression Depression Disease Active U nivers 8-14 ity of 00:00: [place] 00 Medical Branch Abdominal Abdominal Disease Active Uni vers pain, pain, 8-14 ity of other other 00:00: [place] specified specified 00 [facility] site site Branch Encounter Encounter Disease Active Overview: Univers for for 8-14 ICD10 ity of routine routine 00:00: Diagnosis [place] gynecologi gynecologi 00 Term Me dical devonte 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 Branch examinatio examinatio Utility n n Breakthrou Breakthrou Disease Active U nivers gh gh 8-11 ity of bleeding bleeding 00:00: [place] on on 00 Medical Nexplanon Nexplanon Bran ch Obesity Obesity Disease Active Overview: Univ ers 8-11 ICD10 ity of 00:00: Diagnosis [place] 00 Term Medical 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 Branch Utility Surveillan Surveillan Disease Active Overview : Univers ce of ce of 811 ICD10 ity of previously previously 00:00: Diagnosis [place] prescribed prescribed 00 Term Me dical contracept contracept 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 Branch mont[place] method [place] method Utility Allergies, Adverse Reactions, Alerts Allergy Allergy Status Severity Reaction(s) Onset Inactive Treating Comm ents Source Name Type Date Date Clinician Hydrocor Propensi Active tisone - ty to 8 Oral adverse 00:00: reaction 00 to drug Hydrocor Propensi Active tisone ty to 8 adverse 00:00: reaction 00 to drug Iodine Propensi Active Hives Univers ty to 11-11 ity of adverse 00:00: [place] reaction 00 Medical s Branch Hydrocor Propensi Active Swelling 2012-05 Univ ers tisone ty to 1-19 ity of adverse 00:00: [place] reaction 00 Medical s Branch Social History Social Habit Start Date Stop Date Quantity Comments Source Alcohol intake [facility] Sex Assigned At Universit y of [facility] Alcohol Comment 2014-12-26 2014-12-26 occasionally Univers ity of 00:00:00 00:00:00 [facility] History of 2013-03-[address] [facility] tobacco use 00:00:00 [facility] Smoking Status Start Date Stop Date Source Former smoker 2018-08-23 00:00:00 2018-08-23 00:00:00 [facility] Medications Ordered Filled Start Stop Current Ordering Indication Dosage Frequency Signature Comments Components Source Medication Medication Date Date Medication? Clinician (SIG) Name Name fluconazole No 1mg 150 mg 8-30 tablet 00:00: 00 Etonogestre Yes 68mg 68 mg by Un esperanza l 3-29 Subdermal ity of (NEXPLANON) 11:03: route once [place] 68 mg 16 now. Medical implant Branch SERTraline Yes 50mg Take 50 mg U nivers (ZOLOFT) 50 3-29 by mouth ity of mg tablet 11:03: daily. [place] 16 Medical Branch naproxen Yes [id number] 550mg Take 1 Un esperanza sodium 3-29 tablet by ity of (ANAPROX 00:00: mouth 2 [place] DS) 550 mg 00 (two) Medical tablet times Branch daily with meals. ORTHO Yes [id number] 1{tbl} Take 1 Tab Univers TRI-CYCLEN- 8-11 by mouth ity of 28 (ORTHO 00:00: daily. [place] TRI-CYCLEN, 00 Medical 28,) Branch 0.18/0.215/ 0.25 mg-35 mcg (28) tablet ibuprofen Yes 600mg Take 1 Tab U nivers (MOTRIN) 6-27 by mouth 2 ity o f 600 mg 00:00: (two) [place] tablet 00 times Medical daily with Branch meals. Immunizations Ordered Filled Immunization Date Status Comments [facility] e Immunization Name Name Tdap 2013-01-[address] [facility] 00:00:00 [facility] Vital Signs Vital Name Observation Time Observation Value Comments Source BP Systolic 2022-01-14 15:57:00 117 mm[Hg] BP Diastolic 2022-01-14 15:57:00 79 mm[Hg] Weight Measured 2022-01-14 15:57:00 157.80 pounds Height Measured 2022-01-14 15:57:00 70.80 inches Body Temperature 2022-01-14 15:57:00 98.00 degrees Heart Rate 2022-01-14 15:57:00 96.00 /min Respiratory Rate 2022-01-14 15:57:00 18.00 /min BP Systolic 2019-01-10 15:09:00 114 mm[Hg] BP Diastolic 2019-01-10 15:09:00 78 mm[Hg] Weight Measured 2019-01-10 15:09:00 153.20 pounds Height Measured 2019-01-10 15:09:00 70.80 inches Body Temperature 2019-01-10 15:09:00 98.23 degrees Heart Rate 2019-01-10 15:09:00 98.00 /min Respiratory Rate 2019-01-10 15:09:00 17.00 /min BP Systolic 2019-01-05 08:31:00 106 mm[Hg] BP Diastolic 2019-01-05 08:31:00 71 mm[Hg] Weight Measured 2019-01-05 08:31:00 157.20 pounds Height Measured 2019-01-05 08:31:00 70.80 inches Body Temperature 2019-01-05 08:31:00 97.70 degrees Heart Rate 2019-01-05 08:31:00 64.00 /min Respiratory Rate 2019-01-05 08:31:00 16.00 /min Procedures This patient has no known procedures. Plan of Care Planned Activity Planned Date Details Comments Source Goal Plan of Care Note [code = 93850-2] Goal Plan of Care Note [code = 62469-4] Goal Plan of Care Note [code = 95638-2] Goal Plan of Care Note [code = 78907-8] Goal Plan of Care Note [code = 74000-7] Goal Plan of Care Note [code = 93010-9] Goal Plan of Care Note [code = 71849-9] Goal Plan of Care Note [code = 95011-9] Goal Plan of Care Note [code = 96464-4] Encounters Start End Encounter Admission Attending Care Care Encounter Source Date/Time Date/Time Type Type Clinicians Facility Department ID 2022-04-17 2022-04-17 Outpatient [facility] SFA [id number] [id number] Silvano 17:58:29 17:58:29 [address] 2022-01-14 2022-01-14 Outpatient [id number] 00:00:00 00:00:00 Visit [id number] 2019-01-03 2019-01-03 Telephone [employer], [facility] [id number] 00:00:00 00:00:00 Tanisha C 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 [id number] REGIONAL [id number] MATERNAL [id number] & CHILD [address] [place] [address] 2019-01-03 2019-01-03 Telephone [employer], [facility] [id number] [facility] 00:00:00 00:00:00 Tanisha C 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 [id number] ity [facility] [id number] Jaret as MATERNAL [id number] Med ical & CHILD 107 [facility] Results Test Description Test Time Test Comments Results Result Comments Source PAP TEST, THINPREP, IMAGED 2019-01-10 00:00:00 Test Item Value Reference Range Interpretation Comme nts SOURCE: (test code = 8001) Cervical/Endocervical SLIDES: (test code = 8011) 2 LMP: (test code = 8021) 01/04/2019 SPECIMEN ADEQUACY: (test code = 14698) (NOTE) INTERPRETATION: (test code = 69018) NILM/NO EPITH. ABNORMALITY;SEE BELOW OTHER COMMENTS: (test code = 8081) (NOTE) HUMAN RESOURCES LEADER: (test code = 8101) LEO Hayward(ASCP) QC TECHNOLOGIST: (test code = 8111) MACARIO Hodge(ASCP)CT(IAC) LOCATION: (test code = 80890) (NOTE) CPT: (test code = 8140) (NOTE) PAP TEST, THINPREP, [id number] 00:00:00 Test Item Value Reference Range Interpretation Comments SOURCE: (test code = Cervical/Endocervical 8001) SLIDES: (test code = 2 8011) LMP: (test code = 8021) 01/04/2019 SPECIMEN ADEQUACY: (NOTE) (test code = 91919) INTERPRETATION: (test NILM/NO EPITH. code = 22982) ABNORMALITY;SEE BELOW OTHER COMMENTS: (test (NOTE) code = 8081) HUMAN RESOURCES LEADER: (test Vincangle code = 8101) LEO Neumann(ASCP) QC TECHNOLOGIST: (test Shelley code = 8111) MACARIO Steele(ASCP)CT(IAC ) LOCATION: (test code = (NOTE) 49726) CPT: (test code = 8140) (NOTE) HPV HIGH RISK WITH GENOTYPE, [id number] 00:00:00 Test Item Value Reference Range Interpretation Comments HPV HIGH RISK INTERP (test code = NEGATIVE 14601) HPV 16 (test code = 49755) NEGATIVE HPV 18 (test code = 47977) NEGATIVE HPV, HR, OTHER GENOTYPES (test code NEGATIVE = 63288) HPV HIGH RISK WITH GENOTYPE, [id number] 00:00:00 Test Item Value Reference Range Interpretation Comments HPV HIGH RISK INTERP (test code = NEGATIVE 68573) HPV 16 (test code = 68294) NEGATIVE HPV 18 (test code = 50633) NEGATIVE HPV, HR, OTHER GENOTYPES (test code NEGATIVE = 12107) GC AND CHLAMYDIA AMPLIFIED, [id number] 00:00:00 Test Item Value Reference Range Interpretation Comments GONORRHEA, TMA (test code = 17488) NEGATIVE CHLAMYDIA, TMA (test code = 25982) NEGATIVE GC AND CHLAMYDIA AMPLIFIED, [id number] 00:00:00 Test Item Value Reference Range Interpretation Comments GONORRHEA, TMA (test code = 20828) NEGATIVE CHLAMYDIA, TMA (test code = 18904) NEGATIVE VAGINAL PATHOGENS DNA [id number] 00:00:00 Test Item Value Reference Range Interpretation Comments KAY SPECIES (test code = 88037) NEGATIVE G. VAGINALIS (test code = 78305) NEGATIVE T. VAGINALIS (test code = 50196) NEGATIVE VAGINAL PATHOGENS DNA [id number] 00:00:00 Test Item Value Reference Range Interpretation Comments KAY SPECIES (test code = 23863) NEGATIVE G. VAGINALIS (test code = 05678) NEGATIVE T. VAGINALIS (test code = 57361) NEGATIVE
[2022-06-19] MEDS ORDERED: HYDROCODONE/APAP 5/325 MG TAB ONE (20:07)
[2022-06-19] MEDS ORDERED: IBUPROFEN 400 MG TAB ONE (20:07)
--- NOTE | 2022-06-19 20:46 | RAD REPORT ---
EXAM DESCRIPTION: RAD - Foot Left 3 View - 06/19/2022 8:28 pm CLINICAL HISTORY: PAIN COMPARISON: No comparisons FINDINGS: No fracture or dislocation seen.
--- NOTE | 2022-06-19 20:54 | EDPHYS ---
Physician Documentation [facility] Name: Terri Bustamante Age: 36 yrs Sex: Female : 1985 Arrival Date: 06/19/2022 Time: 19:35 Bed 17 Private MD: ED Physician Kit Ordaz HPI: 06/19 19:53 This 36 yrs old Female presents to ER via Wheelchair with complaints of Foot Injury. snw 19:53 The patient presents with pain, that is acute, swelling, tenderness. The complaints snw affect the lateral aspect of left foot. Severity of symptoms: At their worst the symptoms were moderate, severe. The patient has not recently seen a physician. 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 - Social history:: Smoking status: Reported history of juuling and/or vaping. ROS: 19:52 Constitutional: Negative for fever, chills, and weight loss. snw 19:52 MS/extremity: Positive for injury or acute deformity, decreased range of motion, pain, swelling, of the dorsum of left foot. Exam: 19:51 Constitutional: This is a well developed, well nourished patient who is awake, alert, snw and in no acute distress. Head/Face: Normocephalic, atraumatic. Eyes: Pupils equal round and reactive to light, extra-ocular motions intact. Lids and lashes normal. Conjunctiva and sclera are non-icteric and not injected. Cornea within normal limits. Periorbital areas with no swelling, redness, or edema. 19:51 Musculoskeletal/extremity: Extremities: grossly normal except: noted in the dorsum of left foot: contusion, ecchymosis, swelling, tenderness, ROM: no acute changes, Circulation is intact in all extremities. Vital Signs: 19:39 BP 110 / 84; Pulse 79; Resp 19; Temp 99.1(O); Pulse Ox 100% ; Weight 70.76 kg; Height 5 kd3 ft. 9 in. (175.26 cm); Pain 9/10; 20:00 BP 116 / 81; Pulse 80; Resp 16 S; Pulse Ox 100% on R/A; ha1 20:45 BP 122 / 78; Pulse 75; Resp 16 S; Pulse Ox 100% on R/A; ha1 19:39 Body Mass Index 23.04 (70.76 kg, 175.26 cm) kd3 MDM: 19:46 Patient medically screened. snw 19:53 Differential diagnosis: dislocation, closed fracture, contusion. Data reviewed: vital snw signs, nurses notes. 20:39 Independent interpretation of the following test(s) in the Emergency Department X-Ray: snw My interpretation is neg for fx, + avulsion of navicular bone, sprain likely. Special discussion: Based on the history and exam findings, there is no indication for further emergent testing or inpatient evaluation. I discussed with the patient/guardian the need to see the primary care provider for further evaluation of the symptoms. 06/19 19:49 Order name: Foot Left 3 View XRAY; Complete Time: 20:53 snw 06/19 19:49 Order name: Ice pack; Complete Time: 20:00 snw 06/19 20:39 Order name: Walking boot; Complete Time: 21:53 snw Administered Medications: 20:07 Drug: HYDROcodone-acetaminophen 5 mg-325 mg 1 tabs Route: PO; ha1 20:30 Follow up: Response: No adverse reaction; Pain is decreased; RASS: Alert and Calm (0) ha1 20:07 Drug: Motrin (ibuprofen) 400 mg Route: PO; ha1 20:30 Follow up: Response: No adverse reaction ha1 Disposition: 06/20 03:13 Co-signature as Attending Physician, Suzy NAVARRO I reviewed the patient's care rt provided by the Advanced Practice Provider and agree with the diagnosis and treatment plan. Disposition Summary: 06/19/22 20:53 Discharge Ordered Location: Home snw Condition: Stable snw Diagnosis - Other sprain of left foot snw Followup: snw - With: Emergency Department - When: As needed - Reason: Worsening of condition Followup: snw - With: Private Physician - When: 2 - 3 days - Reason: Recheck today's complaints, Continuance of care, Re-evaluation by your physician Discharge Instructions: - Discharge Summary Sheet snw - Foot Sprain snw - RICE Therapy for Routine Care of Injuries snw - Walking Boot, Adult snw Forms: - Medication Reconciliation Form snw - Thank You Letter snw - Antibiotic Education snw - Prescription Opioid Use snw - Work release form ha1 Prescriptions: - Mobic 7.5 mg Oral Tablet - take 1 tablet by ORAL route once daily take with food; 20 tablet; Refills: 0, snw Product Selection Permitted Signatures: Dispatcher [employer] EDMS Suzy Katz FNP-C LOIN TRIMMER-Csnw Iwona Busby, RN RN kd3 Tory Childers RN RN ha1 Kit Ordaz MD MD rt
--- NOTE | 2022-06-19 20:54 | ER ---
Nurse's Notes [facility] Name: Terri Bustamante Age: 36 yrs Sex: Female : 1985 Arrival Date: 06/19/2022 Time: 19:35 Bed 17 Private MD: Diagnosis: Other sprain of left foot Presentation: 06/19 19:39 Chief complaint: Patient states: I was out playing [employer] and I landed on my left kd3 ankle and it cracked. It hurts a lot and i am worried it is broken. Coronavirus screen: Vaccine status: Patient reports receiving the 2nd dose of the covid vaccine. Ebola Screen: No symptoms or risks identified at this time. Initial Sepsis Screen: Does the patient meet any 2 criteria? No. Patient's initial sepsis screen is negative. Does the patient have a suspected source of infection? No. Patient's initial sepsis screen is negative. Risk Assessment: Do you want to hurt yourself or someone else? Patient reports no desire to harm self or others. Onset of symptoms was June 19, 2022. 19:39 Method Of Arrival: Wheelchair kd3 19:39 Acuity: IDA 3 kd3 Triage Assessment: 19:43 General: Appears uncomfortable, Behavior is calm, cooperative. Pain: Complains of pain kd3 in left medial ankle and anterior aspect of left ankle. Musculoskeletal: Circulation, motion, and sensation intact. 19:50 Injury Description: Bruise sustained to lateral aspect of left foot. 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 - Social history:: Smoking status: Reported history of juuling and/or vaping. Screenin:00 [facility] ED Fall Risk Assessment (Adult) History of falling in the last 3 months, ha1 including since admission Yes- single mechanical fall (1 pt) Confusion or Disorientation No (0 pts) Intoxicated or Sedated No (0 pts) Impaired Gait No (0 pts) Mobility Assist Device Used No (0 pt) Altered Elimination No (0 pt) Score/Fall Risk Level 0 - 2 = Low Risk Oriented to surroundings, Maintained a safe environment, Educated pt \T\ family on fall prevention, incl call for assistance when getting out of bed. Abuse screen: Denies threats or abuse. Denies injuries from another. Nutritional screening: No deficits noted. Tuberculosis screening: No symptoms or risk factors identified. Assessment: 19:50 General: Appears uncomfortable, Behavior is calm, cooperative. Pain: Complains of pain ha1 in left foot Pain does not radiate. Pain currently is 8 out of 10 on a pain scale. Quality of pain is described as throbbing, Pain began suddenly, Is continuous. Neuro: Level of Consciousness is awake, alert, obeys commands, Oriented to person, place, time, situation. Cardiovascular: Capillary refill < 3 seconds Patient's skin is warm and dry. Respiratory: Airway is patent Respiratory effort is even, unlabored, Respiratory pattern is regular, symmetrical. GI: No signs and/or symptoms were reported involving the gastrointestinal system. Abdomen is flat, non-distended. Derm: Skin is pink, warm \T\ dry. Musculoskeletal: Circulation, motion, and sensation intact. Range of motion: intact in all extremities, Reports pain in left foot. 20:50 Reassessment: Patient and/or family updated on plan of care and expected duration. Pain ha1 level reassessed. Patient is alert, oriented x 3, equal unlabored respirations, skin warm/dry/pink. Patient states symptoms have improved. Vital Signs: 19:39 BP 110 / 84; Pulse 79; Resp 19; Temp 99.1(O); Pulse Ox 100% ; Weight 70.76 kg; Height 5 kd3 ft. 9 in. (175.26 cm); Pain 9/10; 20:00 BP 116 / 81; Pulse 80; Resp 16 S; Pulse Ox 100% on R/A; ha1 20:45 BP 122 / 78; Pulse 75; Resp 16 S; Pulse Ox 100% on R/A; ha1 19:39 Body Mass Index 23.04 (70.76 kg, 175.26 cm) kd3 ED Course: 19:35 Patient arrived in ED. as 19:43 Triage completed. kd3 19:43 Arm band placed on right wrist. kd3 19:44 Patient has correct armband on for positive identification. Placed in gown. Bed in low ha1 position. Call light in reach. Side rails up X 1. Adult w/ patient. 19:45 Suzy Katz FNP-C [facility] snw 19:45 Kit Ordaz MD is Attending Physician. snw 19:59 Tory Childers, RN is Primary Nurse. ha1 20:38 Foot Left 3 View XRAY In Process Unspecified. EDMS 21:58 No provider procedures requiring assistance completed. Patient did not have IV access ha1 during this emergency room visit. Administered Medications: 20:07 Drug: HYDROcodone-acetaminophen 5 mg-325 mg 1 tabs Route: PO; ha1 20:30 Follow up: Response: No adverse reaction; Pain is decreased; RASS: Alert and Calm (0) ha1 20:07 Drug: Motrin (ibuprofen) 400 mg Route: PO; ha1 20:30 Follow up: Response: No adverse reaction ha1 Medication: 21:33 VIS not applicable for this client. ha1 Outcome: 20:53 Discharge ordered by . snw 21:58 Discharged to home ambulatory, with family. ha1 21:58 Condition: stable 21:58 Discharge instructions given to patient, family, Instructed on discharge instructions, follow up and referral plans. medication usage, Demonstrated understanding of instructions, follow-up care, medications, Prescriptions given X 1. 21:59 Patient left the ED. ha1 Signatures: Dispatcher [employer] EDMO Suzy Katz FNP-C FAMILY RESOURCE SPECIALIST-Csnw Thuy Eng Kyli RN RN kd3 Tory Childers, RN RN ha1
[2022-06-19 22:39] VITALS: TEMP 99.1; O2SAT 100
[2022-06-19 22:42] VITALS: BP 122/78
== END 2022-06-19 21:59 | disposition home or self-care (01) ==
LOC: ER 19:32
DX: S93.692A Other sprain of left foot, initial encounter (principal); Z88.5 Allergy status to narcotic agent; Z91.048 Other nonmedicinal substance allergy status
CPT/HCPCS: 99283

== ENCOUNTER 2022-09-12 17:38 | Emergency (ER) | payer OTHER ==
--- OUTSIDE RECORDS SUMMARY | 2022-09-12 17:42 | XMS REPORT | Continuity of Care Document ---
:1985 Author Organization [facility] t Address [address] [place] [address] Care Team Providers Name Role Phone Selwyn JACOB, [facility] Primary Care Physician [phone] Harvey MILLER Attending Clinician Unavailable Harvey Lorenzana Attending Clinician AkinTanisha King Attending Clinician [phone] Harvey MILLER Admitting Clinician Unavailable Payers Payer Name Policy Type Policy Number Effective Date Expiration Date S sidra [facility] [id number] 2022 HEALTHCARE 00:00:00 Problems Condition Condition Condition Status Onset Resolution Last Treating Co mments Source Name Details Category Date Date Treatment Clinician Date Depression Depression Disease Active U nivers 8-14 ity of 00:00: [place] 00 Medical Branch Abdominal Abdominal Disease Active Uni vers pain, pain, 8-14 ity of other other 00:00: [place] specified specified 00 Medi devonte site site Branch Encounter Encounter Disease Active Overview: Univers for for 8-14 Formattin ity of routine routine 00:00: g of this [place] gynecologi gynecologi 00 note Me dical devonte devonte might be Branch examinatio examinatio different n n from the original. ICD10 Diagnosis Term Weaver Hand Utility Breakthrou Breakthrou Disease Active U nivers gh gh 12-26 ity of bleeding bleeding 00:00: [place] on on 00 Medical Nexplanon Nexplanon Bran ch Obesity Obesity Disease Active Overview: Univ ers 12-26 Formattin ity of 00:00: g of this 00 note Medical might be Branch different from the original. ICD10 Diagnosis Term Weaver Hand Utility Surveillan Surveillan Disease Active Overview : Univers ce of ce of 12-26 Formattin ity of previously previously 00:00: g of this [place] prescribed prescribed 00 note Me dical contracept contracept might be Branch montana method montana method different from the original. ICD10 Diagnosis Term Weaver Hand Utility Allergies, Adverse Reactions, Alerts Allergy Allergy Status Severity Reaction(s) Onset Inactive Treating Comm ents Source Name Type Date Date Clinician Hydrocor Propensi Active tisone - ty to 8 Oral adverse 00:00: reaction 00 to drug Hydrocor Propensi Active tisone ty to 8-21 adverse 00:00: reaction 00 to drug IODINE DRUG Active Hives Univers INGREDI 6-27 ity of 00:00: [place] 00 Medical Branch Iodine Propensi Active Hives Univers ty to 6-27 ity of adverse 00:00: [place] reaction 00 Medical s Branch Hydrocor Propensi Active Swelling 2012-05 [facility] ers tisone ty to -19 ity of adverse 00:00: [place] reaction 00 Medical s Branch HYDROCOR DRUG Active Swelling 2012-05 [facility] s TISONE INGREDI 19 ity of 00:00: [place] 00 Medical Branch Social History Social Habit Start Date Stop Date Quantity Comments Source Exposure to 2022-06-10 2022-06-20 Not sure [facility] SARS-CoV-2 00:00:00 10:24:00 [facility] (event) Branch Alcohol intake 2022-06-20 2022-06-20 0 /d University of 00:00:00 00:00:00 [facility] Alcohol Comment 2014-12-26 2014-12-26 occasionally Univers ity of 00:00:00 00:00:00 [facility] Tobacco use and 2013-04-05 2013-04-05 Smokeless tobacco Un iversity of exposure 00:00:00 00:00:00 non-user [facility] History of 2013-03-09 Cigarette Smoker [facility] of tobacco use 00:00:00 [facility] Sex Ass[birth year] At [birth year] Universit y of 00:00:00 00:00:00 [facility] Smoking Status Start Date Stop Date Source Ex-smoker 2013-04-05 00:00:00 2013-04-05 00:00:00 [facility] Medications Ordered Filled Start Stop Current Ordering Indication Dosage Frequency Signature Comments Components Source Medication Medication Date Date Medication? Clinician (SIG) Name Name HYDROcodone 2022- No 1{tbl} 1 tablet, Univers -acetaminop 06-20 Oral, ity of hen (NORCO 19:00: 18:02 ONCE, 1 Jaret as 5) 5-325 mg 00 :00 dose, On Medi devonte tablet 1 Thu06/20/22 Branc h tablet at 1300, JOSE ibuprofen 2022- No 600mg 600 mg, Uni vers (IBU) 06-20 Oral, ity of tablet 600 18:15: 18:02 ONCE, 1 Jaret as mg 00 :00 dose, On Medical 06/20/22 Branch at 1215, JOSE ibuprofen Yes [id number] 600mg Take 1 Univers 600 mg 06-20 [id number] tablet by ity of tablet 00:00: mouth [place] 00 every 6 Medical (six) Branch hours as needed for Pain (scale 4-6). traMADoL 50 Yes [id number] 50mg Take 1 Univ ers mg tablet -03 tablet by ity o f 00:00: mouth [place] 00 every 6 Medical (six) Branch hours as needed for Pain (scale 4-6). Indication s: acute pain fluconazole No 1mg 150 mg 8-30 tablet 00:00: 00 Etonogestre Yes 68mg 68 mg by Un esperanza l 3- Subdermal ity of (NEXPLANON) 11:03: route once [place] 68 mg 16 now. Medical implant Branch SERTraline Yes 50mg Take 50 mg U nivers (ZOLOFT) 50 3-29 by mouth ity of mg tablet 11:03: daily. [place] 16 Medical Branch Etonogestre Yes 68mg 68 mg by Un esperanza l 3-29 Subdermal ity of (NEXPLANON) 06:03: route once [place] 68 mg 16 now. Medical implant Branch SERTraline Yes 50mg Take 50 mg U nivers (ZOLOFT) 50 3-29 by mouth ity of mg tablet 06:03: daily. [place] [address] Medical Branch naproxen Yes [id number] 550mg Take 1 Un esperanza sodium 3-29 tablet by ity of (ANAPROX 00:00: mouth 2 [place] DS) 550 mg 00 (two) Medical tablet times Branch daily with meals. naproxen Yes [id number] 550mg Take 1 Un esperanza sodium 3-29 tablet by ity of (ANAPROX 00:00: mouth 2 [place] DS) 550 mg 00 (two) Medical tablet times Branch daily with meals. ORTHO Yes [id number] 1{tbl} Take 1 Tab Univers TRI-CYCLEN- 8-11 by mouth ity of 28 (ORTHO 00:00: daily. [place] TRI-CYCLEN, [facility] 28,) Branch 0.18/0.215/ 0.25 mg-35 mcg (28) tablet ORTHO Yes [id number] 1{tbl} Take 1 Tab Univers TRI-CYCLEN- 8-11 by mouth ity of 28 (ORTHO 00:00: daily. [place] TRI-CYCLEN, [facility] 28,) Branch 0.18/0.215/ 0.25 mg-35 mcg (28) tablet ibuprofen Yes 600mg Take 1 Tab U nivers (MOTRIN) 6-27 by mouth 2 ity o f 600 mg 00:00: (two) [place] tablet 00 times Medical daily with Branch meals. ibuprofen Yes 600mg Take 1 Tab U nivers (MOTRIN) 6-27 by mouth 2 ity o f 600 mg 00:00: (two) [place] tablet 00 times Medical daily with Branch meals. Immunizations Ordered Filled Immunization Date Status Comments [facility] e Immunization Name Name Tdap 2013-01-16 Completed [facility] 00:00:00 [facility] TDAP 2013-01-16 Completed [facility] 00:00:00 [facility] Vital Signs Vital Name Observation Time Observation Value Comments Source Systolic blood 2022-06-20 16:25:00 112 mm[Hg] Univer sity of pressure [facility] Diastolic blood 2022-06-20 16:25:00 90 mm[Hg] Unive rsity of pressure [facility] Heart rate 2022-06-20 16:25:00 71 /min Universi ty of [facility] Body temperature 2022-06-20 16:25:00 37.22 [place] Univ ersity of [facility] Respiratory rate 2022-06-20 16:25:00 18 /[facility] height 2022-06-20 16:25:00 175.3 cm Universi ty of [facility] Body weight 2022-06-20 16:25:00 70.761 kg Universi ty [facility] BMI 2022-06-20 16:25:00 23.04 kg/m2 [facility] Oxygen saturation in 2022-06-20 16:25:00 100 /min University Arterial blood by [facility] Pulse oximetry Branch BP Systolic 2022-01-14 15:57:00 117 mm[Hg] BP [...] Respiratory Rate 2019-01-05 08:31:00 16.00 /min Procedures Procedure Date / Time Performed Performing Clinician [facility] e XR ANKLE 3+ VW LEFT 2022-06-20 16:58:11 [facility] XR FOOT 3+ VW LEFT 2022-06-20 16:58:11 Harvey Miller Universit y of [facility] NOTICE OF PRIVACY 2022-06-20 16:21:33 Doctor Unassigned, No Univ ersity [facility] NOTICE OF PRIVACY 2022-06-20 16:20:28 [facility] 2022-06-20 16:20:06 [facility], [facility] T[facility] Plan of Care Planned Activity Planned Date Details Comments Source Goal Plan of Care Note [code = 69715-0] Goal Plan of Care Note [code = 81543-1] Goal Plan of Care Note [code = 89879-2] Goal Plan of Care Note [code = 24703-4] Goal Plan of Care Note [code = 17191-9] Goal Plan of Care Note [code = 33105-5] Goal Plan of Care Note [code = 52583-0] Goal Plan of Care Note [code = 69418-8] Goal Plan of Care Note [code = 15368-4] Encounters Start End Encounter Admission Attending Care Care Encounter Source Date/Time Date/Time Type Type Clinicians Facility Department ID 2022-06-20 2022-06-20 Emergency X Harvey [facility] ERT [id number] Univers 10:26:00 12:25:00 ity of [facility] 2022-06-20 2022-06-20 Emergency Harvey Miller [id number] Univers 10:26:00 12:25:00 Ana MARIANO [id number] i ty [place] [id number] [place] [facility] [id number] [facility] [address] [place] 2022-04-17 2022-04-17 Outpatient [facility] SFA [id number] Silv[place] 17:58:29 17:58:29 [address] 2022-01-14 2022-01-14 Outpatient [id number] 00:00:00 00:00:00 Visit [id number] 2019-01-03 2019-01-03 Telephone [facility] [id number] 00:00:00 00:00:00 Tanisha C NUTRITION INTERN [id number] [facility] [id number] MATERNAL [id number] & CHILD [address] [facility] 2019-01-03 2019-01-03 Telephone [facility], [facility] [id number] [facility] 00:00:00 00:00:00 Tanisha C NUTRITION INTERN [id number] ity of [facility] [id number] Jaret as MATERNAL [id number] Med ical & CHILD [address] [place] [address] Results Test Description Test Time Test Comments Results Result Comments Source PAP TEST, THINPREP, IMAGED 2019-01-10 00:00:00 Test Item Value Reference Range Interpretation Comme nts SOURCE: (test code = 8001) Cervical/Endocervical SLIDES: (test code = 8011) 2 LMP: (test code = 8021) 01/04/2019 SPECIMEN ADEQUACY: (test code = 08112) (NOTE) INTERPRETATION: (test code = 43900) NILM/NO EPITH. ABNORMALITY;SEE BELOW OTHER COMMENTS: (test code = 8081) (NOTE) CONTAMINATED LAND CONSULTANT: (test code = 8101) Tomas Neumann,CT(ASCP) QC TECHNOLOGIST: (test code = 8111) Shelley Steele,SCT(ASCP)CT(IAC) LOCATION: (test code = 76701) (NOTE) CPT: (test code = 8140) (NOTE) PAP TEST, THINPREP, [id number] 00:00:00 Test Item Value Reference Range Interpretation Comments SOURCE: (test code = Cervical/Endocervical 8001) SLIDES: (test code = 2 8011) LMP: (test code = 8021) 01/04/2019 SPECIMEN ADEQUACY: (NOTE) (test code = 27823) INTERPRETATION: (test NILM/NO EPITH. code = 44368) ABNORMALITY;SEE BELOW OTHER COMMENTS: (test (NOTE) code = 8081) CONTAMINATED LAND CONSULTANT: (test Vincent code = 8101) LEO Neumann(ASCP) QC TECHNOLOGIST: (test Shelley code = 8111) MACARIO Steele(ASCP)CT(IAC ) LOCATION: (test code = (NOTE) 70732) CPT: (test code = 8140) (NOTE) HPV HIGH RISK WITH GENOTYPE, [id number] 00:00:00 Test Item Value Reference Range Interpretation Comments HPV HIGH RISK INTERP (test code = NEGATIVE 69794) HPV 16 (test code = 26512) NEGATIVE HPV 18 (test code = 39131) NEGATIVE HPV, HR, OTHER GENOTYPES (test code NEGATIVE = 57334) HPV HIGH RISK WITH GENOTYPE, [id number] 00:00:00 Test Item Value Reference Range Interpretation Comments HPV HIGH RISK INTERP (test code = NEGATIVE 21900) HPV 16 (test code = 70876) NEGATIVE HPV 18 (test code = 58871) NEGATIVE HPV, HR, OTHER GENOTYPES (test code NEGATIVE = 66011) GC AND CHLAMYDIA AMPLIFIED, [id number] 00:00:00 Test Item Value Reference Range Interpretation Comments GONORRHEA, TMA (test code = 71639) NEGATIVE CHLAMYDIA, TMA (test code = 96700) NEGATIVE GC AND CHLAMYDIA AMPLIFIED, [id number] 00:00:00 Test Item Value Reference Range Interpretation Comments GONORRHEA, TMA (test code = 07884) NEGATIVE CHLAMYDIA, TMA (test code = 32757) NEGATIVE VAGINAL PATHOGENS DNA [id number] 00:00:00 Test Item Value Reference Range Interpretation Comments KAY SPECIES (test code = 34479) NEGATIVE G. VAGINALIS (test code = ) NEGATIVE T. VAGINALIS (test code = ) NEGATIVE VAGINAL PATHOGENS DNA [id number] 00:00:00 Test Item Value Reference Range Interpretation Comments KAY SPECIES (test code = ) NEGATIVE G. VAGINALIS (test code = ) NEGATIVE T. VAGINALIS (test code = ) NEGATIVE
[2022-09-12 19:02] LABS: Absolute Lymphocytes (CBC) 2.7 K/uL (0.7-4.9); Hematocrit 39.6 % (36.0-45.0); Lymphocytes % 33.9 % (15.3-44.8); MCV 82.2 fL (80-100); MPV 7.7 fL (7.6-11.3); RBC Red Blood Cell Count 4.81 M/uL (3.86-4.86)
[2022-09-12] MEDS ORDERED: Ringers Lactate 1,000 ML IV ONE (19:11)
[2022-09-12 19:15] LABS: Albumin 3.8 g/dL (3.4-5.0); Bilirubin Total 0.4 mg/dL (0.2-1.0); Potassium 3.5 mEq/L (3.5-5.1); Protein, Total 7.5 g/dL (6.4-8.2)
[2022-09-12 20:16] LABS: Urine Bacteria <20 /HPF (<20); Urine Bilirubin NEGATIVE (Negative); Urine Blood Negative (Negative); Urine Clarity Clear (Clear); Urine Color Yellow (Yellow); Urine Crystals Unidentified Few /HPF (None Seen); Urine Glucose NEGATIVE (Negative); Urine Mucus 4+ /HPF (None Seen); Urine Protein 1+ (Negative); Urine RBC <5 /HPF (None Seen); Urine Urobilinogen Normal (Normal)
--- NOTE | 2022-09-12 20:48 | EDPHYS ---
Physician Documentation [facility] Name: Terri Bustamante Age: 37 yrs Sex: Female : 1985 Arrival Date: 09/12/2022 Time: 17:38 Bed 9 Private MD: ED Physician Celio Stack HPI: 09/12 17:56 This 37 yrs old Female presents to ER via Ambulatory with complaints of jmm Vomiting/Diarrhea. 17:56 The patient presents to the emergency department with nausea, vomiting. Onset: The jmm symptoms/episode began/occurred gradually, 1 day(s) ago. Possible causes: sick contacts, by family. The symptoms are aggravated by nothing. The symptoms are alleviated by nothing. This is a 37-year-old female with history of bipolar, anxiety the presents emerged department with complaints of vomiting and diarrhea beginning approximately day ago. Family members have had similar episodes as well. Denies cough, sore throat. Historical: - Allergies: 17:53 Hydrocortisone; ld1 17:53 Iodine; ld1 - PMHx: 17:53 Anemia; Anxiety; Bipolar disorder; boderline diabetic; borderline personality; ld1 Depression; heart murmer; uterine inversion after ; - PSHx: 17:53 None; ld1 - Immunization history:: Adult Immunizations up to date, Client reports receiving the 2nd dose of the Covid vaccine. - Social history:: Smoking status: Reported history of juuling and/or vaping. Patient/guardian denies using alcohol. ROS: 17:56 Constitutional: Negative for fever, chills, and weight loss, Cardiovascular: Negative jmm for chest pain, palpitations, and edema, Respiratory: Negative for shortness of breath, cough, wheezing, and pleuritic chest pain. 17:56 Abdomen/GI: Positive for vomiting, diarrhea. 17:56 All other systems are negative. Exam: 17:56 Constitutional: This is a well developed, well nourished patient who is awake, alert, jmm and in no acute distress. Head/Face: atraumatic. Eyes: EOMI, no conjunctival erythema appreciated ENT: Moist Mucus Membranes Neck: Trachea midline, Supple Chest/axilla: Normal chest wall appearance and motion. Cardiovascular: Regular rate and rhythm. No edema appreciated Respiratory: Normal respirations, no respiratory distress appreciated Abdomen/GI: Non distended Back: Normal ROM Skin: General appearance color normal 17:56 Musculoskeletal/extremity: ROM: intact in all extremities. 17:56 Skin: Appearance: Color: normal in color. 17:56 Neuro: Motor: is normal. 17:56 Psych: Behavior/mood is pleasant, cooperative. Vital Signs: 17:53 BP 135 / 79; Pulse 71; Resp 18; Temp 98.3(O); Pulse Ox 100% on R/A; Weight 72.57 kg; ld1 Height 5 ft. 9 in. ; Pain 0/10; 19:54 BP 118 / 76; Pulse 74; Resp 18; Pulse Ox 100% ; mb9 17:53 Body Mass Index 23.63 (72.57 kg, 175.26 cm) ld1 17:53 Pain Scale: Adult ld1 MDM: 18:12 Patient medically screened. [facility] 20:46 Differential diagnosis: viral gastroenteritis, gastroenteritis. Data reviewed: vital [facility] signs, nurses notes. I considered the following discharge prescriptions or medication management in the emergency department Medications were administered in the Emergency Department. See MAR. Counseling: I had a detailed discussion with the patient and/or guardian regarding: the historical points, exam findings, and any diagnostic results supporting the discharge/admit diagnosis, the need for outpatient follow up, to return to the emergency department if symptoms worsen or persist or if there are any questions or concerns that arise at home. ED course: Patient is alert nontoxic in appearance in the ED. Patient has no abdominal pain on palpation. I do not Suspect acute appendicitis. Patient advised follow-up PCP and otherwise given strict return precautions. Patient understood agrees plan of care.. 09/12 17:55 Order name: COVID-19 SARS RT PCR; Complete Time: 18:57 [facility] 09/12 17:56 Order name: Flu; Complete Time: 18:31 [facility] 09/12 18:14 Order name: CBC with Diff; Complete Time: 19:49 [facility] 09/12 18:14 Order name: CMP; Complete Time: 19:18 [facility] 09/12 18:14 Order name: Lipase; Complete Time: 19:18 [facility] 09/12 18:15 Order name: Urinalysis w/ reflexes; Complete Time: 20:21 [facility] 09/12 18:14 Order name: IV Saline Lock; Complete Time: 19:05 [facility] 09/12 18:14 Order name: Labs collected and sent; Complete Time: 19:05 [facility] Administered Medications: 19:20 Drug: Lactated Ringers Solution IV 1000 ml Route: IV; Rate: 1000 bolus; Site: right mb9 antecubital; 20:45 Drug: Ondansetron IVP 4 mg Route: IVP; Site: left antecubital; mb9 20:51 Follow up: Response: No adverse reaction mb9 Disposition: 09/13 13:24 Co-signature as Attending Physician, Celio Stack DO I was immediately available on-site ms3 in the Emergency Department for consultation in the care of the patient. Disposition Summary: 09/12/22 20:47 Discharge Ordered Location: Home [facility] Condition: Stable [facility] Diagnosis - Vomiting jmm - Diarrhea, unspecified jmm Followup: [facility] - With: Private Physician - When: 2 - 3 days - Reason: Recheck today's complaints, Continuance of care, Re-evaluation by your physician Discharge Instructions: - Discharge Summary Sheet [facility] - Food Choices to Help Relieve Diarrhea, Adult jm - Diarrhea, Adult jmm - Vomiting, Adult [facility] Forms: - Work release form [facility] - Medication Reconciliation Form [facility] - Thank You Letter [facility] - Antibiotic Education [facility] - Prescription Opioid Use [facility] Prescriptions: - ondansetron 4 mg Oral Tablet,disintegrating - take 1 tablet by ORAL route every 4-6 hours As needed; 30 tablet; Refills: 0, [facility] Product Selection Permitted - dicyclomine 20 mg Oral Tablet - take 1 tablet by ORAL route 4 times per day As needed; 30 tablet; Refills: 0, [facility] Product Selection Permitted Signatures: Dispatcher [employer] Brady Laura PA PA Celio Figueredo DO DO ms3 Suzette Stack, RN RN ld1 Dayanna Howard RN RN mb9
--- NOTE | 2022-09-12 20:48 | ER ---
Nurse's Notes [facility] Name: Terri Bustamante Age: 37 yrs Sex: Female : 1985 Arrival Date: 09/12/2022 Time: 17:38 Bed 9 Private MD: Diagnosis: Vomiting;Diarrhea, unspecified Presentation: 09/12 17:53 Chief complaint: Patient states: N/V, fever, chills X 2 days. Coronavirus screen: ld1 Client presents with at least one sign or symptom that may indicate coronavirus-19. Standard/surgical mask placed on the client. Ebola Screen: No symptoms or risks identified at this time. Initial Sepsis Screen: Does the patient meet any 2 criteria? No. Patient's initial sepsis screen is negative. Does the patient have a suspected source of infection? No. Patient's initial sepsis screen is negative. Risk Assessment: Do you want to hurt yourself or someone else? Patient reports no desire to harm self or others. Onset of symptoms was September 12, 2022 at 17:53. 17:53 Method Of Arrival: Ambulatory ld1 17:53 Acuity: IDA 4 ld1 Triage Assessment: 17:53 General: Appears in no apparent distress. comfortable, Behavior is calm, cooperative, ld1 appropriate for age. Pain: Denies pain. EENT: No signs and/or symptoms were reported regarding the EENT system. Neuro: Level of Consciousness is awake, alert, obeys commands, Oriented to person, place, time, situation. Cardiovascular: Capillary refill < 3 seconds Patient's skin is warm and dry. Respiratory: Airway is patent Respiratory effort is even, unlabored. GI: Abdomen is flat, non-distended, Reports nausea, vomiting. : No signs and/or symptoms were reported regarding the genitourinary system. Derm: No signs and/or symptoms reported regarding the dermatologic system. Musculoskeletal: No signs and/or symptoms reported regarding the musculoskeletal system. Historical: - Allergies: 17:53 Hydrocortisone; ld1 17:53 Iodine; ld1 - PMHx: 17:53 Anemia; Anxiety; Bipolar disorder; boderline diabetic; borderline personality; ld1 Depression; heart murmer; uterine inversion after ; - PSHx: 17:53 None; ld1 - Immunization history:: Adult Immunizations up to date, Client reports receiving the 2nd dose of the Covid vaccine. - Social history:: Smoking status: Reported history of juuling and/or vaping. Patient/guardian denies using alcohol. Screenin:55 [facility] ED Fall Risk Assessment (Adult) History of falling in the last 3 months, mb9 including since admission No falls in past 3 months (0 pts) Confusion or Disorientation No (0 pts) Intoxicated or Sedated No (0 pts) Impaired Gait No (0 pts) Mobility Assist Device Used No (0 pt) Altered Elimination No (0 pt) Score/Fall Risk Level 0 - 2 = Low Risk Oriented to surroundings, Maintained a safe environment, Educated pt \T\ family on fall prevention, incl call for assistance when getting out of bed. Abuse screen: Denies threats or abuse. Nutritional screening: No deficits noted. Tuberculosis screening: No symptoms or risk factors identified. Assessment: 19:54 General: Appears in no apparent distress. Behavior is calm, cooperative. Neuro: Level mb9 of Consciousness is awake, alert, obeys commands. Cardiovascular: Patient's skin is warm and dry. Respiratory: Airway is patent Respiratory effort is even, unlabored, Respiratory pattern is regular, symmetrical. GI: Reports nausea. Derm: Skin is pink, warm \T\ dry. Musculoskeletal: Range of motion: intact in all extremities. Vital Signs: 17:53 BP 135 / 79; Pulse 71; Resp 18; Temp 98.3(O); Pulse Ox 100% on R/A; Weight 72.57 kg; ld1 Height 5 ft. 9 in. ; Pain 0/10; 19:54 BP 118 / 76; Pulse 74; Resp 18; Pulse Ox 100% ; mb9 17:53 Body Mass Index 23.63 (72.57 kg, 175.26 cm) ld1 17:53 Pain Scale: Adult ld1 ED Course: 17:42 Patient arrived in ED. mr 17:53 Triage completed. ld1 17:55 Arm band placed on right wrist. ld1 17:56 Brady Shelby PA is PHCP. [facility] 17:56 Celio Stack DO is Attending Physician. [facility] 18:05 Flu Sent. ld1 18:05 COVID-19 SARS RT PCR Sent. ld1 18:45 Initial lab(s) drawn, by ma, sent to lab. Inserted saline lock: 22 gauge in right tm3 antecubital area, using aseptic technique. 19:01 Dayanna Howard, RN is Primary Nurse. mb9 19:05 CBC with Diff Sent. mb9 19:05 CMP Sent. mb9 19:05 Lipase Sent. mb9 19:54 Test, Urine Sent. mb9 19:54 Urinalysis w/ reflexes Sent. mb9 19:55 Placed in gown. Bed in low position. Call light in reach. Side rails up X 1. Client mb9 placed on continuous cardiac and pulse oximetry monitoring. NIBP monitoring applied. 19:55 No provider procedures requiring assistance completed. mb9 20:51 IV discontinued, intact, bleeding controlled, No redness/swelling at site. Pressure mb9 dressing applied. Administered Medications: 19:20 Drug: Lactated Ringers Solution IV 1000 ml Route: IV; Rate: 1000 bolus; Site: right mb9 antecubital; 20:45 Drug: Ondansetron IVP 4 mg Route: IVP; Site: left antecubital; mb9 20:51 Follow up: Response: No adverse reaction mb9 Medication: 19:55 VIS not applicable for this client. mb9 Outcome: 20:47 Discharge ordered by . petey 20:51 Discharged to home ambulatory. mb9 20:51 Condition: stable 20:51 Discharge instructions given to patient, Instructed on discharge instructions, follow up and referral plans. Demonstrated understanding of instructions, follow-up care, medications, Prescriptions given X 2. 20:51 Patient left the ED. mb9 Signatures: Allenracheal Archie tm3 Brady Shelby PA PA jmm Rivera, Mary mr Sims, Lauren RN RN ld1 Dayanna Howard, RN RN mb9
[2022-09-12] MEDS ORDERED: ONDANSETRON 4 MG/2 ML VIAL ONE (20:52)
[2022-09-12 21:40] VITALS: TEMP 98.3; O2SAT 100
[2022-09-12 21:42] VITALS: BP 118/76
== END 2022-09-12 20:51 | disposition home or self-care (01) ==
LOC: ER 17:38
DX: R11.10 Vomiting, unspecified (principal); R19.7 Diarrhea, unspecified; Z20.822 Contact with and (suspected) exposure to COVID-19; Z88.8 Allergy status to other drugs, medicaments and biological substances; Z91.048 Other nonmedicinal substance allergy status
CPT/HCPCS: 85025; 81001; 36415; 83690; 80053; 87804 ×2; U0003; J2405; J7120

== ENCOUNTER 2022-11-11 01:15 | Emergency (ER) | payer OTHER ==
--- OUTSIDE RECORDS SUMMARY | 2022-11-11 01:19 | XMS REPORT | Continuity of Care Document ---
:1985 Author Organization [facility] t Address [address] [place] [address] Care Team Providers Name Role Phone PCP, PATIENT DOES NOT HAVE A Primary Care Physician Unavaila ble Harvey MILLER Attending Clinician Unavailable Harvey Lorenzana Attending Clinician Akinsikiki WHTanisha MASON Attending Clinician [phone] Harvey MILLER Admitting Clinician Unavailable Payers Payer Name Policy Type Policy Number Effective Date Expiration Date S sidra [facility] [id number] 2022 HEALTHCARE 00:00:00 Problems Condition Condition Condition [...] of routine routine 00:00: g of this [place] gynecologi gynecologi 00 note Me dical devonte devonte might be Branch examinatio examinatio different n n from the original. 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 ICD10 Diagnosis Term Quality Assurance Manager Utility Surveillan Surveillan Disease Active Overview : Univers ce of ce of 12-26 Formattin ity of previously previously 00:00: g of this [place] prescribed prescribed 00 note Me dical contracept contracept might be Branch montana method montana method different from the original. ICD10 Diagnosis Term Quality Assurance Manager Utility Allergies, Adverse Reactions, Alerts Allergy Allergy [...] s Branch Hydrocor Propensi Active Swelling 2012-05 [facility] ers tisone ty to 1-19 ity of adverse 00:00: [place] reaction 00 Medical s Branch HYDROCOR DRUG Active Swelling 2012-05 [facility] s TISONE INGREDI 1-19 ity of 00:00: [place] 00 Medical Branch Social History Social Habit Start Date Stop Date Quantity Comments Source Exposure to 2022-06-10 2022-06-20 Not sure [facility] SARS-CoV-2 00:00:00 10:24:00 [facility] [place] [facility] (event) Branch Alcohol intake 2022-06-20 2022-06-20 0 /d University of 00:00:00 00:00:00 [facility] Alcohol Comment 2014-12-26 2014-12-26 occasionally Univers ity of 00:00:00 00:00:00 [facility] Tobacco use and 2013-04-05 2013-04-05 Smokeless tobacco Un iversity of exposure 00:00:00 00:00:00 non-user [facility] History of 2013-03-09 Cigarette Smoker [facility] of tobacco use 00:00:00 [facility] Sex Assigned At [birth year] Universit y of 00:00:00 00:00:00 [facility] Smoking Status Start Date Stop Date Source Ex-smoker 2013-04-05 00:00:00 2013-04-05 00:00:00 [facility] Medications Ordered Filled Start Stop Current [...] Medical 06/20/22 Branch at 1215, JOSE ibuprofen 0 Yes [id number] 600mg Take 1 Univers 600 mg 06-20 [id number] tablet by ity of tablet 00:00: mouth [...] mouth ity of mg tablet 11:03: daily. [place] [address] Medical Branch Etonogestre Yes 68mg 68 mg by Un esperanza l 3-29 Subdermal ity of (NEXPLANON) 06:03: route once [place] 68 mg 16 now. Medical implant Branch SERTraline Yes 50mg Take 50 mg U nivers (ZOLOFT) 50 3-29 by mouth ity of mg tablet 06:03: daily. [place] [address] Medical Branch naproxen Yes [id number] 550mg Take 1 Un esperanza sodium 3-29 tablet by ity of (ANAPROX 00:00: mouth 2 [place] DS) 550 mg 00 (two) Medical tablet times Branch daily with meals. naproxen Yes [id number] 550mg Take 1 Un esperanza sodium 3-29 tablet by ity of (ANAPROX 00:00: mouth 2 [place] DS) 550 mg 00 (two) Medical tablet times Branch daily with meals. ORTHO Yes [id number] 1{tbl} Take 1 Tab Univers TRI-CYCLEN- 8-11 by mouth ity of 28 (ORTHO 00:00: daily. [place] TRI-CYCLEN, [facility] 28,) Branch 0.18/0.215/ 0.25 mg-35 mcg (28) tablet ORTHO Yes [id number] 1{tbl} Take 1 Tab Univers TRI-CYCLEN- 8-11 by mouth ity of 28 (ORTHO 00:00: daily. [place] TRI-CYCLEN, [facility] 28,) Branch 0.18/0.215/ 0.25 mg-35 mcg (28) [...] Immunizations Ordered Filled Immunization Date Status Comments [facility] e Immunization Name Name Td 2013-01-16 Completed [facility] 00:00:00 [facility] TDAP 2013-01-16 Completed [facility] 00:00:00 [facility] Vital Signs Vital Name Observation Time Observation Value Comments Source Systolic blood 2022-06-20 16:25:00 112 mm[Hg] Univer sity of pressure [facility] Diastolic blood 2022-06-20 16:25:00 90 mm[Hg] Unive rsity of pressure [facility] Heart rate 2022-06-20 16:25:00 71 /min Universi ty of [facility] Body temperature 2022-06-20 16:25:00 37.22 Shirley Univ ersity of [facility] Respiratory rate 2022-06-20 16:25:00 18 /[facility] Body height 2022-06-20 16:25:00 175.3 cm Universi ty of [facility] Body weight 2022-06-20 16:25:00 70.761 kg Universi ty [facility] BMI 2022-06-20 16:25:00 23.04 kg/m2 Universi ty [facility] Oxygen saturation in 2022-06-20 16:25:00 100 /min [facility] Arterial blood by [facility] Pulse oximetry Branch BP Systolic 2022-01-14 15:57:00 [...] Procedure Date / Time Performed Performing Clinician [facility] e XR ANKLE 3+ VW LEFT 2022-06-20 16:58:11 Harvey Miller [facility] XR FOOT 3+ VW LEFT 2022-06-20 16:58:11 Harvey Miller [facility] NOTICE OF PRIVACY 2022-06-20 16:21:33 [facility] 2022-06-20 16:20:28 [facility]REFUSAL FOR 2022-06-20 16:20:06 [facility] Plan of Care Planned Activity Planned Date Details Comments Source Goal Plan of Care Note [code = 56934-5] Goal Plan of Care Note [code = 61602-8] Goal Plan of Care Note [code = 65453-9] Goal Plan of Care Note [code = 75521-0] Goal Plan of Care Note [code = 01846-1] Goal Plan of Care Note [code = 86928-4] Goal Plan of Care Note [code = 38611-4] Goal Plan of Care Note [code = 78691-5] Goal Plan of Care Note [code = 07837-4] Encounters Start End Encounter Admission Attending Care Care Encounter Source Date/Time Date/Time Type Type Clinicians Facility Department ID 2022-10-27 2022-10-27 Outpatient CARLI BOYCE [id number] [place] 09:25:10 09:25:10 0612 David 2022-10-20 2022-10-20 Outpatient CARLI BOYCE [id number] [place] 14:21:06 14:21:06 0605 F David 2022-10-06 2022-10-06 Outpatient CARLI BOYCE [id number] [place] 13:23:49 13:23:49 0522 F David 2022-09-22 2022-09-22 Outpatient [facility] [id number] [place] 11:05:44 11:05:44 0508 F David 2022-06-20 2022-06-20 Emergency X Harvey MILLER [facility] ERT [id number] Univers 10:26:00 12:25:00 ity of [facility] 2022-06-20 2022-06-20 Emergency Harvey Miller [facility] [id number] Univers 10:26:00 12:25:00 [facility] [id number] i [facility] [id number] [facility] [id number] [address] 2022-04-17 2022-04-17 Outpatient [facility] SFA [id number] Sil[place] 17:58:29 17:58:29 [address] [facility] 2022-01-14 2022-01-14 Outpatient [id number] 00:00:00 00:00:00 Visit [id number] 2019-01-03 2019-01-03 Telephone [facility] [id number] 00:00:00 00:00:00 Tanisha C INFORMATION ASSURANCE SPECIALIST [id number] [facility] [id number] MATERNAL [id number] & CHILD [address] [place] [address] 2019-01-03 2019-01-03 Telephone [facility] [id number] [facility] 00:00:00 00:00:00 Tanisha C INFORMATION ASSURANCE SPECIALIST [id number] ity [facility] [id number] Jaret as MATERNAL [id number] Med ical & CHILD [address] [place] [address] Results Test Description Test Time Test Comments Results Result Comments Source CT/NG, NAAT, URINE 2022-10-28 17:50:45 Test Item Value Reference Range Interpretation Comme nts CHLAMYDIA, NAAT, URINE (test NEGATIVE NEGATIVE Testing is performed with Sriram code = 08462) LUANN 6800/880 0 systems usingreal-time polymerase chain reaction (PCR) method. A negative result does not exclude low level infection, spec imensampling error, or collection e rror. GONORRHEA, NAAT, URINE (test NEGATIVE NEGATIVE Testing is performed with Sriram code = 08371) LUANN 6800/880 0 systems usingreal-time polymerase chain reaction (PCR) method. A negative result does not exclude low level infection, spec imensampling error, or collection e rror. TRICHOMONAS, NAAT, [id number] 17:49:42 Test Item Value Reference Range Interpretation Comments TRICHOMONAS, NEGATIVE NEGATIVE Testing is per formed with NAAT, URINE (test Sriram LAURO S 6800/8800 method code = 72968) usingreal-time polymerase chain reaction (PCR) method. A negative resu lt does not exclude low lev el infection, specimensamplin g error, or collection erro r. UNLESS OTHERWISE INDIC ATED, ALL TESTING PERFORM ED AT [facility] [place] [address] LABORATORY DIRE CTOR: DEIDRA TINOCO M.D. CLIA NUMBER [id number] CAP ACCREDITATION N O. [id number] HIV 1/2 4TH GEN, RFLX [id number] 04:41:07 Test Item Value Reference Range Interpretation Comments HIV 1/2 4TH GEN, RFLX CONF (test NON-REACTIVE NON-REACTIVE code = 3514) HEPATITIS PANEL, [id number] 04:41:07 Test Item Value Reference Range Interpretation Comments HEPATITIS A TOTAL AB NON-REACTIVE NON-REACTIVE (test code = 2725) HEPATITIS B SURF AG NON-REACTIVE NON-REACTIVE (test code = 2739) HEP B CORE TOTAL AB NON-REACTIVE NON-REACTIVE (test code = 2729) HEPATITIS B SURFACE AB NON-REACTIVE NON-REACTIVE (test code = 2737) HEPATITIS C ANTIBODY NON-REACTIVE NON-REACTIVE (test code = 4675) INTERPRETATION (NOTE) Hepatitis A HEPATITIS A: (test serology shows no code = 2552) evidence of pas t exposure to orcurrent infec tion with hepatitis A virus; patient not immune tohepati tis A. INTERPRETATION (NOTE) Hepatitis B HEPATITIS B: (test serology shows no code = 40514) evidence of pa st exposure to orcurrent infec tion with hepatitis B virus. No evide nce of hepatitis Bimmunization i s identified. INTERPRETATION (NOTE) Hepatitis C HEPATITIS C: (test serology shows no code = 77498) evidence of ex posure to hepatitisC v irus at this time. I t can take up to 12 m onths after exposure tothe hepatitis C vir us for antibodies to become detectab le in the blood in ce rtain patients. [id number] 04:33:41 Test Item Value Reference Range Interpretation Comments RPR RESULT (test code = NON-REACTIVE NON-REACTIVE 3501) RPR TITER (test code = 3500) NOT INDIC. TITER NOT INDIC. PAP TEST, THINPREP, [id number] 00:00:00 Test Item Value Reference Range Interpretation Comments SOURCE: (test code = Cervical/Endocervical 8001) SLIDES: (test code = 2 8011) LMP: (test code = 8021) 01/04/2019 SPECIMEN ADEQUACY: (NOTE) (test code = 23903) INTERPRETATION: (test NILM/NO EPITH. code = 52555) ABNORMALITY;SEE BELOW OTHER COMMENTS: (test (NOTE) code = 8081) PORTABLE PINCH RIVETER: (test Vincent code = 8101) LEO Neumann(ASCP) QC TECHNOLOGIST: (test Shelley code = 8111) MACARIO Steele(ASCP)CT(IAC ) LOCATION: (test code = (NOTE) 56848) CPT: (test code = 8140) (NOTE) PAP TEST, THINPREP, [id number] 00:00:00 Test Item Value Reference Range Interpretation Comments SOURCE: (test code = Cervical/Endocervical 8001) SLIDES: (test code = 2 8011) LMP: (test code = 8021) 01/04/2019 SPECIMEN ADEQUACY: (NOTE) (test code = 46218) INTERPRETATION: (test NILM/NO EPITH. code = 24426) ABNORMALITY;SEE BELOW OTHER COMMENTS: (test (NOTE) code = 8081) PORTABLE PINCH RIVETER: (test Vincent code = 8101) LEO Neumann(ASCP) QC TECHNOLOGIST: (test Shelley code = 8111) MACARIO Steele(ASCP)CT(IAC ) LOCATION: (test code = (NOTE) 82230) CPT: (test code = 8140) (NOTE) HPV HIGH RISK WITH GENOTYPE, [id number] 00:00:00 Test Item Value Reference Range Interpretation Comments HPV HIGH RISK INTERP (test code = NEGATIVE 54419) HPV 16 (test code = 77505) NEGATIVE HPV 18 (test code = 31628) NEGATIVE HPV, HR, OTHER GENOTYPES (test code NEGATIVE = 84324) HPV HIGH RISK WITH GENOTYPE, [id number] 00:00:00 Test Item Value Reference Range Interpretation Comments HPV HIGH RISK INTERP (test code = NEGATIVE 79256) HPV 16 (test code = 18169) NEGATIVE HPV 18 (test code = 54022) NEGATIVE HPV, HR, OTHER GENOTYPES (test code NEGATIVE = 19551) GC AND CHLAMYDIA AMPLIFIED, [id number] 00:00:00 Test Item Value Reference Range Interpretation Comments GONORRHEA, TMA (test code = 92131) NEGATIVE CHLAMYDIA, TMA (test code = 27121) NEGATIVE GC AND CHLAMYDIA AMPLIFIED, [id number] 00:00:00 Test Item Value Reference Range Interpretation Comments GONORRHEA, TMA (test code = 88503) NEGATIVE CHLAMYDIA, TMA (test code = 95436) NEGATIVE VAGINAL PATHOGENS DNA [id number] 00:00:00 Test Item Value Reference Range Interpretation Comments KAY SPECIES (test code = ) NEGATIVE G. VAGINALIS (test code = 79070) NEGATIVE T. VAGINALIS (test code = 11700) NEGATIVE VAGINAL PATHOGENS DNA [id number] 00:00:00 Test Item Value Reference Range Interpretation Comments KAY SPECIES (test code = 33762) NEGATIVE G. VAGINALIS (test code = 38814) NEGATIVE T. VAGINALIS (test code = 17695) NEGATIVE
[2022-11-11] MEDS ORDERED: NA CHLORIDE 0.9% 1,000 ML ONE (02:16)
[2022-11-11 02:25] LABS: Absolute Lymphocytes (CBC) 3.7 K/uL (0.7-4.9); Hematocrit 33.3 % (36.0-45.0); Lymphocytes % 51.2 % (15.3-44.8); MCV 82.9 fL (80-100); MPV 7.7 fL (7.6-11.3); RBC Red Blood Cell Count 4.01 M/uL (3.86-4.86)
[2022-11-11 02:33] LABS: Albumin 3.4 g/dL (3.4-5.0); Bilirubin Total 0.4 mg/dL (0.2-1.0); Potassium 3.3 mEq/L (3.5-5.1); Protein, Total 6.4 g/dL (6.4-8.2)
[2022-11-11] MEDS ORDERED: POTASSIUM 25 MEQ EFFERV TAB ONE (03:05)
--- NOTE | 2022-11-11 03:10 | EDPHYS ---
Physician Documentation [facility] Name: Terri Bustamante Age: 37 yrs Sex: Female : 1985 Arrival Date: 11/11/2022 Time: 01:15 Bed 18 Private MD: YORDAN Physician Andrew Faulkner HPI: 11/11 03:05 This 37 yrs old Female presents to ER via Ambulatory with complaints of racheal Breast Pain. 03:05 LEFT BREAST NODULE. Onset: The symptoms/episode began/occurred 3 day(s) ago. Severity racheal of symptoms: At their worst the symptoms were mild in the emergency department the symptoms are unchanged. The patient has not experienced similar symptoms in the past. Historical: - Allergies: :28 Hydrocortisone; ha1 01:28 Iodine; ha1 - PMHx: :28 Anemia; Anxiety; Bipolar disorder; borderline personality; boderline diabetic; ha1 Depression; heart murmer; uterine inversion after ; - Immunization history:: Adult Immunizations unknown. - Social history:: Smoking status: unknown. ROS: 03:06 Constitutional: Negative for fever, chills, and weight loss, Eyes: Negative for injury, racheal pain, redness, and discharge, ENT: Negative for injury, pain, and discharge, Neck: Negative for injury, pain, and swelling, Cardiovascular: Negative for chest pain, palpitations, and edema, Respiratory: Negative for shortness of breath, cough, wheezing, and pleuritic chest pain, Abdomen/GI: Negative for abdominal pain, nausea, vomiting, diarrhea, and constipation, Back: Negative for injury and pain, : Negative for injury, bleeding, discharge, and swelling, MS/Extremity: Negative for injury and deformity, Neuro: Negative for headache, weakness, numbness, tingling, and seizure, Psych: Negative for depression, anxiety, suicide ideation, homicidal ideation, and hallucinations, Allergy/Immunology: Negative for hives, rash, and allergies, Endocrine: Negative for neck swelling, polydipsia, polyuria, polyphagia, and marked weight changes, Hematologic/Lymphatic: Negative for swollen nodes, abnormal bleeding, and unusual bruising. 03:06 Skin: Positive for swelling, of the left breast. Exam: 03:06 Constitutional: This is a well developed, well nourished patient who is awake, alert, racheal and in no acute distress. Head/Face: Normocephalic, atraumatic. Eyes: Pupils equal round and reactive to light, extra-ocular motions intact. Lids and lashes normal. Conjunctiva and sclera are non-icteric and not injected. Cornea within normal limits. Periorbital areas with no swelling, redness, or edema. ENT: Nares patent. No nasal discharge, no septal abnormalities noted. Tympanic membranes are normal and external auditory canals are clear. Oropharynx with no redness, swelling, or masses, exudates, or evidence of obstruction, uvula midline. Mucous membranes moist. Neck: Trachea midline, no thyromegaly or masses palpated, and no cervical lymphadenopathy. Supple, full range of motion without nuchal rigidity, or vertebral point tenderness. No Meningismus. Chest/axilla: Normal chest wall appearance and motion. Nontender with no deformity. No lesions are appreciated. Cardiovascular: Regular rate and rhythm with a normal S1 and S2. No gallops, murmurs, or rubs. Normal PMI, no JVD. No pulse deficits. Respiratory: Lungs have equal breath sounds bilaterally, clear to auscultation and percussion. No rales, rhonchi or wheezes noted. No increased work of breathing, no retractions or nasal flaring. Abdomen/GI: Soft, non-tender, with normal bowel sounds. No distension or tympany. No guarding or rebound. No evidence of tenderness throughout. Back: No spinal tenderness. No costovertebral tenderness. Full range of motion. Skin: Warm, dry with normal turgor. Normal color with no rashes, no lesions, and no evidence of cellulitis. MS/ Extremity: Pulses equal, no cyanosis. Neurovascular intact. Full, normal range of motion. Neuro: Awake and alert, GCS 15, oriented to person, place, time, and situation. Cranial nerves II-XII grossly intact. Motor strength 5/5 in all extremities. Sensory grossly intact. Cerebellar exam normal. Normal gait. Psych: Awake, alert, with orientation to person, place and time. Behavior, mood, and affect are within normal limits. Vital Signs: 01:22 BP 123 / 83; Pulse 65; Resp 12; Temp 97.9; Pulse Ox 100% ; Weight 65.77 kg; Height 5 kd3 ft. 9 in. ; Pain 8/10; 02:00 BP 114 / 85; Pulse 64; Resp 16; Pulse Ox 100% on R/A; ha1 03:00 BP 118 / 81; Pulse 63; Resp 16; Pulse Ox 99% on R/A; ha1 03:30 BP 110 / 79; Pulse 63; Resp 15 S; Pulse Ox 99% on R/A; ha1 01:22 Body Mass Index 21.41 (65.77 kg, 175.26 cm) kd3 01:22 Pain Scale: Adult kd3 MDM: 01:56 Patient medically screened. [facility] 03:07 Differential diagnosis: abscess, allergic reaction, cellulitis. Data reviewed: vital racheal signs, nurses notes, lab test result(s), radiologic studies, ultrasound. I considered the following discharge prescriptions or medication management in the emergency department Medications were administered in the Emergency Department. See MAR. Test considered but Not performed: CT: NO CT. Care significantly affected by the following chronic conditions: ANEMIA, BIPOLAR, BORDERLINE, ANXIETY. 11/11 01:56 Order name: CBC with Diff; Complete Time: 02:51 [facility] 11/11 01:56 Order name: Comprehensive Metabolic Panel; Complete Time: 02:51 [facility] 11/11 01:56 Order name: Urinalysis w/ reflexes [facility] 11/11 01:56 Order name: PREGU racheal Administered Medications: 02:10 Drug: NS 0.9% IV 1000 ml Route: IV; Rate: 1 bolus; Site: right antecubital; ha1 03:00 Drug: Potassium PO Effervescent Tablet 25 mEq Route: PO; ha1 03:30 Follow up: Response: No adverse reaction ha1 03:11 Drug: Ibuprofen PO 600 mg Route: PO; ha1 03:30 Follow up: Response: No adverse reaction; Pain is decreased ha1 03:11 Drug: Hydrocodone-Acetaminophen PO (7.5 mg-325 mg) 1 tabs Route: PO; ha1 03:32 Follow up: Response: No adverse reaction; Pain is decreased; RASS: Alert and Calm (0) ha1 Disposition Summary: 11/11/22 03:09 Discharge Ordered Location: Home racheal Problem: new racheal Symptoms: have improved racheal Condition: Stable racheal Diagnosis - Bipolar disorder, unspecified racheal - Disorder of breast, unspecified - BREAST CYST, MULTIPLE racheal Followup: racheal - With: Private Physician - When: 2 - 3 days - Reason: Recheck today's complaints, Continuance of care, Re-evaluation by your physician Followup: racheal - With: Stan Mi MD - When: 2 - 3 days - Reason: Recheck today's complaints, Re-evaluation by your physician Discharge Instructions: - Discharge Summary Sheet racheal - Breast Cyst racheal - Breast Self-Awareness racheal - Bipolar 1 Disorder racheal - Breast Self-Awareness, [id number] racheal - Breast Tenderness racheal - Managing Bipolar Disorder racheal - Mixed Bipolar Disorder racheal Forms: - Medication Reconciliation Form racheal - Thank You Letter racheal - Antibiotic Education racheal - Prescription Opioid Use racheal - [email or web address] [facility] Prescriptions: - diclofenac sodium 50 mg Oral tablet, delayed release (enteric coated) - take 1 tablet by ORAL route every 12 hours; 14 tablet; Refills: 0, Product [facility] Selection Permitted Signatures: Dispatcher [employer] Andrew Huggins MD MD cha Ayala, Heidy, RN RN ha1
--- NOTE | 2022-11-11 03:10 | ER ---
Nurse's Notes [facility] Name: Terri Bustamante Age: 37 yrs Sex: Female : 1985 Arrival Date: 11/11/2022 Time: 01:15 Bed 18 Private MD: Diagnosis: Bipolar disorder, unspecified;Disorder of breast, unspecified-BREAST CYST, MULTIPLE Presentation: 11/11 01:22 Chief complaint: Patient states: c/o of left breast pain that started tonight. 3 days kd3 noticed a hard area to left breast below nipple. No redness noted. Coronavirus screen: Vaccine status: Patient reports receiving the 1st dose of the Covid vaccine. Ebola Screen: Patient negative for fever greater than or equal to 101.5 degrees Fahrenheit, and additional compatible Ebola Virus Disease symptoms. Initial Sepsis Screen: Does the patient meet any 2 criteria? No. Patient's initial sepsis screen is negative. Risk Assessment: Do you want to hurt yourself or someone else? Patient reports no desire to harm self or others. Onset of symptoms was November 08, 2022. 01:22 Method Of Arrival: Ambulatory kd3 01:22 Acuity: IDA 4 kd3 01:28 Initial Sepsis Screen: Does the patient have a suspected source of infection? No. ha1 Patient's initial sepsis screen is negative. Historical: - Allergies: 01:28 Hydrocortisone; ha1 01:28 Iodine; ha1 - PMHx: 01:28 Anemia; Anxiety; Bipolar disorder; borderline personality; boderline diabetic; ha1 Depression; heart murmer; uterine inversion after ; - Immunization history:: Adult Immunizations unknown. - Social history:: Smoking status: unknown. Screenin:15 [facility] ED Fall Risk Assessment (Adult) History of falling in the last 3 months, ha1 including since admission No falls in past 3 months (0 pts) Confusion or Disorientation No (0 pts) Intoxicated or Sedated No (0 pts) Impaired Gait No (0 pts) Mobility Assist Device Used No (0 pt) Altered Elimination No (0 pt) Score/Fall Risk Level 0 - 2 = Low Risk Oriented to surroundings, Maintained a safe environment, Educated pt \T\ family on fall prevention, incl call for assistance when getting out of bed. Abuse screen: Denies threats or abuse. Denies injuries from another. Nutritional screening: No deficits noted. Tuberculosis screening: No symptoms or risk factors identified. Assessment: 01:28 General: Appears comfortable, Behavior is calm, cooperative. Pain: Complains of pain in ha1 left breast Pain does not radiate. Pain currently is 8 out of 10 on a pain scale. Pain began 2-3 days ago. Neuro: Level of Consciousness is awake, alert, obeys commands, Oriented to person, place, time, situation. Cardiovascular: Patient's skin is warm and dry. Respiratory: Airway is patent Respiratory effort is even, unlabored, Respiratory pattern is regular, symmetrical. GI: Abdomen is flat, non-distended. :. : Reports a lump on the left breast. 02:30 Reassessment: Patient and/or family updated on plan of care and expected duration. Pain ha1 level reassessed. Patient is alert, oriented x 3, equal unlabored respirations, skin warm/dry/pink. 03:30 Reassessment: Patient and/or family updated on plan of care and expected duration. Pain ha1 level reassessed. Patient is alert, oriented x 3, equal unlabored respirations, skin warm/dry/pink. Patient states symptoms have improved. Vital Signs: 01:22 BP 123 / 83; Pulse 65; Resp 12; Temp 97.9; Pulse Ox 100% ; Weight 65.77 kg; Height 5 kd3 ft. 9 in. ; Pain 8/10; 02:00 BP 114 / 85; Pulse 64; Resp 16; Pulse Ox 100% on R/A; ha1 03:00 BP 118 / 81; Pulse 63; Resp 16; Pulse Ox 99% on R/A; ha1 03:30 BP 110 / 79; Pulse 63; Resp 15 S; Pulse Ox 99% on R/A; ha1 01:22 Body Mass Index 21.41 (65.77 kg, 175.26 cm) kd3 01:22 Pain Scale: Adult kd3 ED Course: 01:19 Patient arrived in ED. 2 01:26 Triage completed. kd3 01:28 Patient has correct armband on for positive identification. Bed in low position. Call [facility] light in reach. Side rails up X 1. 01:28 Arm band placed on right wrist. 1 01:56 Andrew Faulkner MD is Attending Physician. [facility] 02:05 Childers, Tory, RN is Primary Nurse. ha1 02:10 Comprehensive Metabolic Panel Sent. ha1 02:10 CBC with Diff Sent. ha1 02:35 US Extrmty Nonvasular Limited: the left breast In Process Unspecified. EDMT 03:08 Stan Mi MD is Referral Physician. [facility] 03:32 No provider procedures requiring assistance completed. IV discontinued, intact, ha1 bleeding controlled, No redness/swelling at site. Pressure dressing applied. Administered Medications: 02:10 Drug: NS 0.9% IV 1000 ml Route: IV; Rate: 1 bolus; Site: right antecubital; ha1 03:00 Drug: Potassium PO Effervescent Tablet 25 mEq Route: PO; ha1 03:30 Follow up: Response: No adverse reaction ha1 03:11 Drug: Ibuprofen PO 600 mg Route: PO; ha1 03:30 Follow up: Response: No adverse reaction; Pain is decreased ha1 03:11 Drug: Hydrocodone-Acetaminophen PO (7.5 mg-325 mg) 1 tabs Route: PO; ha1 03:32 Follow up: Response: No adverse reaction; Pain is decreased; RASS: Alert and Calm (0) ha1 Medication: 03:32 VIS not applicable for this client. ha1 Outcome: 03:09 Discharge ordered by . [facility] 03:32 Discharged to home ambulatory. ha1 03:32 Condition: stable 03:32 Discharge instructions given to patient, Instructed on discharge instructions, follow up and referral plans. medication usage, Demonstrated understanding of instructions, follow-up care, medications, Prescriptions given X 1. 03:33 Patient left the ED. ha1 Signatures: Dispatcher [employer] EDMT Andrew Faulkner MD MD cha Alexander, Jessica ja2 Iwona Busby, RN RN kd3 Tory Childers, MAYNOR RN ha1
[2022-11-11 03:16] LABS: Specific Gravity 1.012 (1.005-1.030); Urine Bilirubin NEGATIVE (Negative); Urine Blood Negative (Negative); Urine Clarity Clear (Clear); Urine Color Light-Yellow (Yellow); Urine Glucose NEGATIVE (Negative); Urine Protein NEGATIVE (Negative); Urine Urobilinogen Normal (Normal); Urine pH 5.5 (5.0-7.0)
[2022-11-11] MEDS ORDERED: IBUPROFEN 400 MG TAB ONE (03:16)
[2022-11-11] MEDS ORDERED: IBUPROFEN 200 MG TAB PO ONE (03:16)
[2022-11-11] MEDS ORDERED: HYDROCODONE/APAP 7.5/325 MG TAB ONE (03:17)
[2022-11-11 03:21] LABS: Specific Gravity 1.012 (1.005-1.030)
[2022-11-11 03:41] VITALS: TEMP 97.9; O2SAT 99
[2022-11-11 03:42] VITALS: BP 110/79
--- NOTE | 2022-11-11 17:30 | RAD REPORT ---
EXAM DESCRIPTION: US - BREAST/AXILLA, COMPLETE - 11/11/2022 7:47 am CLINICAL HISTORY: left breast Palpable abnormality, left breast pain COMPARISON: Vent Perfusion VQ Scan dated 01/07/2017 FINDINGS: Full left breast sonography was performed including all 4 quadrants and the retroareolar r egion. [place] hypoechoic 1 cm cyst suspected 5-6 o'clock position. Larger oblong solid mass is present measuring 2 cm, 10 o'clock position. Recommend ultrasound-guided core biopsy of this mass. Elsewhere, no additional abnormality is seen. IMPRESSION: 2 cm solid mass 10 o'clock position left breast. Recommend ultrasound-guided core biopsy . BI-RADS category 4, suspicious. Core biopsy under ultrasound left breast is recommended. The findings were discussed with Dr Faulkner on 11/11/2022 at 2:55 p.m. by telephone. ResultCode: S
== END 2022-11-11 03:33 | disposition home or self-care (01) ==
LOC: ER 01:15
DX: N64.89 Other specified disorders of breast (principal); F31.9 Bipolar disorder, unspecified; Z88.8 Allergy status to other drugs, medicaments and biological substances; Z91.048 Other nonmedicinal substance allergy status
CPT/HCPCS: 85025; 36415; 81025; 81003; 80053; 76641; J7030